=== PATIENT | male | born 1940 | race Hispanic/Latino ===

== ENCOUNTER 2018-05-13 09:37 | Outpatient (CLI) | payer MEDICARE | END 2018-05-13 09:38 | disposition home or self-care (01) | LOC: C.RADIC 09:37 | DX: M54.5 Low back pain (principal) ==

== ENCOUNTER 2018-05-16 09:46 | Inpatient (IN) | payer MEDICARE ==
[2018-05-16] MEDS ORDERED: Morphine 4 MG/ML VIAL ONE ×2 (10:34→11:58)
[2018-05-16 10:52] LABS: BASO % 0.6 % (0.0-2.0); EOS # 0.1 K/uL (0.0-0.7); EOS % 0.9 % (0.0-4.0); MEAN CORPUSCULAR HGB CONC 34.2 g/dL (33.0-37.0); MONO # 0.6 K/uL (0.0-0.8); MONO % 8.1 % (0.0-10.0); RBC 4.49 Mil/uL (4.40-5.90); RED CELL DISTRIBUTION WIDTH 13.9 % (11.5-14.5)
[2018-05-16 10:58] LABS: HEMOGLOBIN 14.1 g/dL (12.0-18.0); LYMPH # 1.2 K/uL (1.0-4.3); LYMPH % 16.4 % (20.0-40.0); MEAN CORPUSCULAR HEMOGLOBIN 31.5 pg (27.0-31.0); MEAN PLATELET VOLUME 9.7 fL (7.2-11.7); NEUT # 5.2 K/uL (1.8-7.0); NRBC % 0.7 % (0.0-2.0)
[2018-05-16 11:04] LABS: INR 1.4; PROTHROMBIN TIME 15.8 SECONDS (9.7-12.2)
[2018-05-16 11:08] LABS: BLOOD UREA NITROGEN 13 mg/dL (9-20); GFR NON-AFRICAN AMERICAN > 60
[2018-05-16 11:18] LABS: ALB/GLOB RATIO 1.6 (1.0-2.1); ALBUMIN 4.4 g/dL (3.5-5.0); ALT/SGPT 7 U/L (21-72); AST/SGOT 49 U/L (17-59)
--- NOTE | 2018-05-16 11:38 | C.PDOC ---
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 Patient states while out shoveling snow, he slipped and fell onto his left hip. He denies any head injury or LOC. Patient is now complaining of left hip pain. He denies any chest pain, SOB, abdominal pain, numbness, weakness, paresthesias, or open wounds. No other injury. Time Seen by Provider: 05/16/18 09:54 Chief Complaint (Nursing): Hip Pain History Per: Patient History/Exam Limitations: no limitations Onset/Duration Of Symptoms: Hrs Current Symptoms Are (Timing): Still Present - Hip Description Of Injury: Fell, Tripped Past Medical History Reviewed: Historical Data, Nursing Documentation, Vital Signs Vital Signs: Last Vital Signs Temp Pulse 54 L 05/16/18 10:39 Resp 10 L 05/16/18 10:39 BP 151/79 H 05/16/18 10:39 Pulse Ox 95 05/16/18 10:39 - Medical History PMH: Atrial Fibrillation, Kidney Stones Surgical History: Hernia Repair Other Surgeries: Prostate surgery Family History: States: No Known Family Hx - Social History Hx Alcohol Use: No Hx Substance Use: No - Immunization History Hx Tetanus Toxoid Vaccination: No Hx Influenza Vaccination: Yes Hx Pneumococcal Vaccination: Yes Review Of Systems Except As Marked, All Systems Reviewed And Found Negative. Constitutional: Negative for: Fever Eyes: Negative for: Vision Change Cardiovascular: Negative for: Chest Pain Respiratory: Negative for: Shortness of Breath Gastrointestinal: Negative for: Nausea, Vomiting, Abdominal Pain Musculoskeletal: Positive for: Leg Pain (Left hip). Negative for: Back Pain Neurological: Negative for: Weakness, Numbness, Headache, Dizziness Physical Exam - Physical Exam Appears: Non-toxic, No Acute Distress Skin: Warm, Dry, No Rash Head: Atraumatic, Normacephalic Eye(s): bilateral: Normal Inspection, PERRL, EOMI Neck: Normal ROM Chest: Symmetrical Cardiovascular: Rhythm Regular, No Murmur Respiratory: Normal Breath Sounds, No Accessory Muscle Use Gastrointestinal/Abdominal: Soft, No Tenderness, No Distention Extremity: Tenderness (to left hip and femur), No Deformity, No Swelling, Other (Left lower extremity shortened) Pulses: Left Dorsalis Pedis: Normal, Right Dorsalis Pedis: Normal Neurological/Psych: Oriented x3, Normal Speech, Normal Motor, Normal Sensation, Other (No focal deficits) ED Course And Treatment - Laboratory Results Result Diagrams: 05/16/18 10:49 05/16/18 10:49 Lab Results: PT 15.8 SECONDS (9.7-12.2) H 05/16/18 10:49 INR 1.4 05/16/18 10:49 APTT 29 SECONDS (21-34) 05/16/18 10:49 Troponin I 0.0130 ng/mL (0.00-0.120) 05/16/18 10:49 Total Bilirubin 1.5 mg/dL (0.2-1.3) H 05/16/18 10:49 AST 49 U/L (17-59) 05/16/18 10:49 ALT 7 U/L (21-72) L 05/16/18 10:49 Alkaline Phosphatase 72 U/L (38-126) 05/16/18 10:49 Total Protein 7.1 g/dL (6.3-8.3) 05/16/18 10:49 Albumin 4.4 g/dL (3.5-5.0) 05/16/18 10:49 Globulin 2.7 gm/dL (2.2-3.9) 05/16/18 10:49 Albumin/Globulin Ratio 1.6 (1.0-2.1) 05/16/18 10:49 O2 Sat by Pulse Oximetry: 95 (RA) Pulse Ox Interpretation: Normal Medical Decision Making Medical Decision Making: Impression: Hip Pain Initial Plan: - Blood work - EKG - Chest x-ray - Left hip x-ray - Left femur x-ray - 4 mg IV morphine - 4 mg IV zofran - Reassess Imaging reviewed, +hip fracture. Case discussed with Dr. Thompson, will not accept patient. Disposition Discussed With : Danica Garcia Doctor Will See Patient In The: Hospital Counseled Patient/Family Regarding: Studies Performed, Diagnosis - Disposition Disposition: HOSPITALIZED Disposition Time: 12:18 Condition: FAIR - Clinical Impression Clinical Impression: Hip fracture - Scribe Statement The provider has reviewed the documentation as recorded by the Steffanie Urbina Provider Attestation: All medical record entries made by the Gildardoibjerome were at my direction and personally dictated by me. I have reviewed the chart and agree that the record accurately reflects my personal performance of the history, physical exam, m edical decision making, and the department course for this patient. I have also personally directed, reviewed, and agree with the discharge instructions and disposition.
--- NOTE | 2018-05-16 12:59 | RAD ---
Date of service: 05/16/2018 PROCEDURE: CHEST RADIOGRAPH, 1 VIEW HISTORY: SOB COMPARISON: 05/01/2017. FINDINGS: LUNGS: The lungs are well inflated and clear. PLEURA: No pneumothorax or pleural effusion. CARDIOVASCULAR: There is mild cardiomegaly. No aortic atherosclerotic calcifications present. OSSEOUS STRUCTURES: Within normal limits for the patient's age. VISUALIZED UPPER ABDOMEN: Normal. OTHER FINDINGS: None. IMPRESSION: No active pulmonary disease.
--- NOTE | 2018-05-16 13:16 | RAD ---
PROCEDURE: Left Hip X-ray Radiographs. HISTORY: Fall COMPARISON: None. FINDINGS: BONES: The pelvic ring is intact. There is diffuse bone demineralization. There is an acute comminuted mildly displaced left intertrochanteric fracture. 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 The sacroiliac joints are normal. SOFT TISSUES: There is a lobular calcification in the right paraspinous region at L5 which may represent a calcified lymph node or soft tissue calcification. OTHER FINDINGS: None. IMPRESSION: Acute comminuted mildly displaced left intertrochanteric fracture. No dislocation.
--- NOTE | 2018-05-16 13:18 | RAD ---
Date of service: 05/16/2018 PROCEDURE: Left Femur Radiographs. HISTORY: Fall COMPARISON: None. TECHNIQUE: AP and Lateral Radiographs of the left femur. FINDINGS: FEMUR: There is an acute comminuted mildly displaced left intertrochanteric fracture. There is diffuse bone demineralization. Bone alignment is normal. Mild degenerative osteoarthrosis in the left hip joint SOFT TISSUES: Normal. OTHER FINDINGS: None. IMPRESSION: Acute comminuted mildly displaced left intertrochanteric fracture. No dislocation of the
[2018-05-16] MEDS ORDERED: Enoxaparin 80 mg Syringe SC SCH (17:15)
--- NOTE | 2018-05-16 18:41 | CP.PCM.CON ---
History of Present Illness - History of Present Illness History of Present Illness: 78 yo M w Hx Afib, HTN, hypercholesterolemia admitted sp slip and fall on ice diagnosed w L hip fx. Consulted for pain medication. Pt has pain over L hip area. Pt states pain 10/10 before receiving Morphine 3mg IV approx 3 hrs ago. Pain currently 6/10, worse with movement. 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 Past Patient History - Infectious Disease Hx of Infectious Diseases: None - Past Medical History & Family History Past Medical History?: Yes - Past Social History Smoking Status: Never Smoked - CARDIAC Hx Cardiac Disorders: Yes Hx Atrial Fibrillation: Yes - PULMONARY Hx Respiratory Disorders: No - NEUROLOGICAL Hx Neurological Disorder: No - HEENT Hx HEENT Problems: No - RENAL Hx Chronic Kidney Disease: Yes Hx Kidney Stones: Yes - ENDOCRINE/METABOLIC Hx Endocrine Disorders: No - HEMATOLOGICAL/ONCOLOGICAL Hx Blood Disorders: No - INTEGUMENTARY Hx Dermatological Problems: No - MUSCULOSKELETAL/RHEUMATOLOGICAL Hx Musculoskeletal Disorders: No Hx Falls: No - GASTROINTESTINAL Hx Gastrointestinal Disorders: No - GENITOURINARY/GYNECOLOGICAL Hx Genitourinary Disorders: No - PSYCHIATRIC Hx Psychophysiologic Disorder: No Hx Substance Use: No - SURGICAL HISTORY Hx Surgeries: Yes Other/Comment: Bilateral inguinal hernia surgery. Surgery for kidney stones. Surgery for enlarged prostate - ANESTHESIA Hx Anesthesia: Yes Hx Anesthesia Reactions: No Meds Allergies/Adverse Reactions: Allergies Allergy/AdvReac Type Severity Reaction Status Date / Time iodine Allergy Mild DIZZINESS Verified 05/16/18 10:27 - Medications Medications: Current Medications Enalapril Maleate (Vasotec) 10 mg PO BID [facility] Enoxaparin Sodium (Lovenox) 80 mg SC Q12 [facility] Hydromorphone/Sodium Chloride (Dilaudid Energy Risk Management Analyst) 6 mg IV Q4H PRN; Protocol PRN Reason: Pain, moderate (4-7) Morphine Sulfate (Morphine) 4 mg IVP Q6 [facility] Last Admin: 05/16/18 15:30 Dose: 4 mg Pneumococcal Polyvalent Vaccine (Pneumovax 23 Vaccine) 0.5 ml IM .ONCE ONE Stop: 05/18/18 14:01 Rosuvastatin Calcium (Crestor) 10 mg PO [facility] Results - Vital Signs Recent Vital Signs: Last Vital Signs Temp 98.4 F 05/16/18 16:00 Pulse 66 05/16/18 16:00 Resp 20 05/16/18 16:00 BP 107/67 05/16/18 16:00 Pulse Ox 96 05/16/18 16:00 - Labs Result Diagrams: 05/16/18 10:49 05/16/18 10:49 Labs: Laboratory Results - last 24 hr 05/16/18 05/16/18 05/16/18 10:49 10:49 10:49 WBC 7.0 RBC 4.49 Hgb 14.1 Hct 41.3 MCV 92.0 MCH 31.5 H MCHC 34.2 RDW 13.9 Plt Count 128 L MPV 9.7 Neut % (Auto) 74.0 Lymph % (Auto) 16.4 L Chester % (Auto) 8.1 Eos % (Auto) 0.9 Baso % (Auto) 0.6 Neut # (Auto) 5.2 Lymph # (Auto) 1.2 Chester # (Auto) 0.6 Eos # (Auto) 0.1 Baso # (Auto) 0.0 PT 15.8 H INR 1.4 APTT 29 Sodium 139 Potassium 4.4 Chloride 106 Carbon Dioxide 23 Anion Gap 15 BUN 13 Creatinine 0.7 L Est GFR ( Amer) > 60 Est GFR (Non-Af Amer) > 60 Random Glucose 126 H Calcium 9.0 Total Bilirubin 1.5 H AST 49 ALT 7 L Alkaline Phosphatase 72 Total Creatine Kinase 86 Troponin I 0.0130 Total Protein 7.1 Albumin 4.4 Globulin 2.7 Albumin/Globulin Ratio 1.6
--- NOTE | 2018-05-16 19:52 | CP.PCM.HP ---
Past Patient History - Infectious Disease Hx of Infectious Diseases: None - Past Medical History & Family History Past Medical History?: Yes - Past Social History Smoking Status: Never Smoked - CARDIAC Hx Cardiac Disorders: Yes Hx Atrial Fibrillation: Yes - PULMONARY Hx Respiratory Disorders: No - NEUROLOGICAL Hx Neurological Disorder: No - HEENT Hx HEENT Problems: No - RENAL Hx Chronic Kidney Disease: Yes Hx Kidney Stones: Yes - ENDOCRINE/METABOLIC Hx Endocrine Disorders: No - HEMATOLOGICAL/ONCOLOGICAL Hx Blood Disorders: No - INTEGUMENTARY Hx Dermatological Problems: No - MUSCULOSKELETAL/RHEUMATOLOGICAL Hx Musculoskeletal Disorders: No Hx Falls: No - GASTROINTESTINAL Hx Gastrointestinal Disorders: No - GENITOURINARY/GYNECOLOGICAL Hx Genitourinary Disorders: No - PSYCHIATRIC Hx Psychophysiologic Disorder: No Hx Substance Use: No - SURGICAL HISTORY Hx Surgeries: Yes Other/Comment: Bilateral inguinal hernia surgery. Surgery for kidney stones. Surgery for enlarged prostate - ANESTHESIA Hx Anesthesia: Yes Hx Anesthesia Reactions: No Meds Allergies/Adverse Reactions: Allergies Allergy/AdvReac Type Severity Reaction Status Date / Time iodine Allergy Mild DIZZINESS Verified 05/16/18 10:27 Physical Exam - Constitutional Appears: Well - Head Exam Head Exam: ATRAUMATIC, NORMAL INSPECTION, NORMOCEPHALIC - Eye Exam Eye Exam: EOMI, Normal appearance, PERRL Pupil Exam: NORMAL ACCOMODATION, PERRL - ENT Exam ENT Exam: Mucous Membranes Moist, Normal Exam - Neck Exam Neck exam: Positive for: Normal Inspection - Respiratory Exam Respiratory Exam: Decreased Breath Sounds - Cardiovascular Exam Cardiovascular Exam: REGULAR RHYTHM, +S1, +S2 - GI/Abdominal Exam GI & Abdominal Exam: Diminished Bowel Sounds, Soft - Rectal Exam Rectal Exam: Deferred Results - Vital Signs Recent Vital Signs: Last Vital Signs Temp 98.4 F 05/16/18 16:00 Pulse 66 05/16/18 16:00 Resp 20 05/16/18 16:00 BP 107/67 05/16/18 16:00 Pulse Ox 96 05/16/18 16:00 - Labs Result Diagrams: 05/16/18 10:49 05/16/18 10:49 Labs: Laboratory Results - last 24 hr 05/16/18 05/16/18 05/16/18 10:49 10:49 10:49 WBC 7.0 RBC 4.49 Hgb 14.1 Hct 41.3 MCV 92.0 MCH 31.5 H MCHC 34.2 RDW 13.9 Plt Count 128 L MPV 9.7 Neut % (Auto) 74.0 Lymph % (Auto) 16.4 L Mcdonald % (Auto) 8.1 Eos % (Auto) 0.9 Baso % (Auto) 0.6 Neut # (Auto) 5.2 Lymph # (Auto) 1.2 Mcdonald # (Auto) 0.6 Eos # (Auto) 0.1 Baso # (Auto) 0.0 PT 15.8 H INR 1.4 APTT 29 Sodium 139 Potassium 4.4 Chloride 106 Carbon Dioxide 23 Anion Gap 15 BUN 13 Creatinine 0.7 L Est GFR ( Amer) > 60 Est GFR (Non-Af Amer) > 60 Random Glucose 126 H Calcium 9.0 Total Bilirubin 1.5 H AST 49 ALT 7 L Alkaline Phosphatase 72 Total Creatine Kinase 86 Troponin I 0.0130 Total Protein 7.1 Albumin 4.4 Globulin 2.7 Albumin/Globulin Ratio 1.6
[2018-05-16] MEDS: Enoxaparin 80 mg Syringe SC SCH (21:29)
--- NOTE | 2018-05-17 09:09 | CP.PCM.CON ---
History of Present Illness - History of Present Illness History of Present Illness: ID: 78 yo male sustained a slip and fall on ice yesterday while shoveling snow HPI - 78 yo male with hx of a fibrillation presents after slip and fall on ice while shoveling snow PT presented to [facility] ER approx 9:[address] Powell was called earlier in day and no response. Iwas notified at 5:13 and responded. Spoke to daughter; pt admitted and evaluated ;will require ORIF displaced L intertrochanteric L femur fracture Review of Systems - Hematologic/Lymphatic Additional comments: ROS - pt with pain L hip; no dyspnea Past Patient History - Infectious Disease Hx of Infectious Diseases: None - Past Medical History & Family History Past Medical History?: Yes - Past Social History Smoking Status: Never Smoked - CARDIAC Hx Cardiac Disorders: Yes Hx Atrial Fibrillation: Yes - PULMONARY Hx Respiratory Disorders: No - NEUROLOGICAL Hx Neurological Disorder: No - HEENT Hx HEENT Problems: No - RENAL Hx Chronic Kidney Disease: Yes Hx Kidney Stones: Yes - ENDOCRINE/METABOLIC Hx Endocrine Disorders: No - HEMATOLOGICAL/ONCOLOGICAL Hx Blood Disorders: No - INTEGUMENTARY Hx Dermatological Problems: No - MUSCULOSKELETAL/RHEUMATOLOGICAL Hx Musculoskeletal Disorders: No Hx Falls: No - GASTROINTESTINAL Hx Gastrointestinal Disorders: No - GENITOURINARY/GYNECOLOGICAL Hx Genitourinary Disorders: No - PSYCHIATRIC Hx Psychophysiologic Disorder: No Hx Substance Use: No - SURGICAL HISTORY Hx Surgeries: Yes Other/Comment: Bilateral inguinal hernia surgery. Surgery for kidney stones. Surgery for enlarged prostate - ANESTHESIA Hx Anesthesia: Yes Hx Anesthesia Reactions: No Meds Allergies/Adverse Reactions: Allergies Allergy/AdvReac Type Severity Reaction Status Date / Time iodine Allergy Mild DIZZINESS Verified 05/16/18 10:27 - Medications Medications: Current Medications Enalapril Maleate (Vasotec) 10 mg PO BID [facility] Last Admin: 05/16/18 21:26 Dose: 10 mg Enoxaparin Sodium (Lovenox) 80 mg SC Q12 [facility] Last Admin: 05/16/18 21:29 Dose: 80 mg Hydromorphone/Sodium Chloride (Dilaudid Fish Skinning Machine Feeder) 6 mg IV Q4H PRN; Protocol PRN Reason: Pain, moderate (4-7) Pneumococcal Polyvalent Vaccine (Pneumovax 23 Vaccine) 0.5 ml IM .ONCE ONE Stop: 05/18/18 14:01 Rosuvastatin Calcium (Crestor) 10 mg PO HS [facility] Last Admin: 05/16/18 21:31 Dose: 10 mg Physical Exam - Additional Findings Additional findings: Systremic exam- asa per internal medicine and cardiology Musculoskeletal stance/gait- defrred pt with shortening and external rotation L lower extremity N/V intact pt with severe pain referable to L LOwer extremity Results - Vital Signs Recent Vital Signs: Last Vital Signs Temp 98.6 F 05/17/18 07:05 Pulse 68 05/17/18 07:05 Resp 20 05/17/18 07:05 BP 113/71 05/17/18 07:05 Pulse Ox 94 L 05/17/18 07:05 - Labs Result Diagrams: 05/16/18 10:49 05/16/18 10:49 Labs: Laboratory Results - last 24 hr 05/16/18 05/16/18 05/16/18 10:49 10:49 10:49 WBC 7.0 RBC 4.49 Hgb 14.1 Hct 41.3 MCV 92.0 MCH 31.5 H MCHC 34.2 RDW 13.9 Plt Count 128 L MPV 9.7 Neut % (Auto) 74.0 Lymph % (Auto) 16.4 L Burke % (Auto) 8.1 Eos % (Auto) 0.9 Baso % (Auto) 0.6 Neut # (Auto) 5.2 Lymph # (Auto) 1.2 Burke # (Auto) 0.6 Eos # (Auto) 0.1 Baso # (Auto) 0.0 PT 15.8 H INR 1.4 APTT 29 Sodium 139 Potassium 4.4 Chloride 106 Carbon Dioxide 23 Anion Gap 15 BUN 13 Creatinine 0.7 L Est GFR ( Amer) > 60 Est GFR (Non-Af Amer) > 60 Random Glucose 126 H Calcium 9.0 Total Bilirubin 1.5 H AST 49 ALT 7 L Alkaline Phosphatase 72 Total Creatine Kinase 86 Troponin I 0.0130 Total Protein 7.1 Albumin 4.4 Globulin 2.7 Albumin/Globulin Ratio 1.6 - Impressions Impression: Objective Xrays reveal displaced/ somewhat comminuted Left intertrochanteric femur fracture Assessment & Plan - Assessment and Plan (Free Text) Assessment: A-displaced/ comminuted L intertrochanteric femur frcature P-to mOR for interlocking/ intramedullary nail L femur- situation discussed at length-with pts daughter Marsha. Pros , cons risks and beneifts discussed at [facility] with pts daughter and with pt No promises/guarantees
[2018-05-17] MEDS: Enoxaparin 80 mg Syringe SC SCH ×2 (10:09→21:11)
--- NOTE | 2018-05-17 12:36 | CP.PCM.PN ---
Subjective - Date & Time of Evaluation Date of Evaluation: 05/17/18 Time of Evaluation: 12:15 - Subjective Subjective: clinically same Objective - Vital Signs/Intake and Output Vital Signs (last 24 hours): Temp Pulse Resp BP Pulse Ox 98.6 F 68 20 113/71 94 L 05/17/18 07:05 05/17/18 07:05 05/17/18 07:05 05/17/18 10:09 05/17/18 07:05 - Medications Medications: Current Medications Enalapril Maleate (Vasotec) 10 mg PO BID [facility] Last Admin: 05/17/18 10:09 Dose: 10 mg Enoxaparin Sodium (Lovenox) 80 mg SC Q12 [facility] Last Admin: 05/17/18 10:09 Dose: 80 mg Hydromorphone/Sodium Chloride (Dilaudid Medical Record Retrieval Specialist) 6 mg IV Q4H PRN; Protocol PRN Reason: Pain, moderate (4-7) Pneumococcal Polyvalent Vaccine (Pneumovax 23 Vaccine) 0.5 ml IM .ONCE ONE Stop: 05/18/18 14:01 Rosuvastatin Calcium (Crestor) 10 mg PO HS [facility] Last Admin: 05/16/18 21:31 Dose: 10 mg - Labs Labs: 05/16/18 10:49 05/16/18 10:49 PT 15.8 SECONDS (9.7-12.2) H 05/16/18 10:49 INR 1.4 05/16/18 10:49 APTT 29 SECONDS (21-34) 05/16/18 10:49 - Constitutional Appears: Well - Head Exam Head Exam: ATRAUMATIC, NORMAL INSPECTION, NORMOCEPHALIC - Eye Exam Eye Exam: EOMI, Normal appearance, PERRL Pupil Exam: NORMAL ACCOMODATION, PERRL - ENT Exam ENT Exam: Mucous Membranes Moist, Normal Exam - Neck Exam Neck Exam: Full ROM, Normal Inspection. absent: Lymphadenopathy - Respiratory Exam Respiratory Exam: Decreased Breath Sounds - Cardiovascular Exam Cardiovascular Exam: REGULAR RHYTHM, +S1, +S2 - GI/Abdominal Exam GI & Abdominal Exam: Soft, Diminished Bowel Sounds - Rectal Exam Rectal Exam: Deferred
--- NOTE | 2018-05-17 14:02 | CARD ---
APPROVED REPORT Date of service: 05/17/2018 EXAM: Two-dimensional and M-mode echocardiogram with Doppler and color Doppler. Other Information Quality : GoodRhythm : INDICATION Pre-Op 2D DIMENSIONS IVSd1.2 (0.7-1.1cm)LVDd5.2 (3.9-5.9cm) LVOT Diameter1.8 (1.8-2.4cm)PWd1.1 (0.7-1.1cm) LVDs3.4 (2.5-4.0cm)FS (%) 34.5 % LVEF (%)63.2 (>50%)LVEF (Rankin's)59.14 % M-Mode DIMENSIONS Left Atrium (MM)3.42 (2.5-4.0cm)Aortic Root3.92 (2.2-3.7cm) Aortic Cusp Exc.1.07 (1.5-2.0cm) Mitral Valve MV E Nvumnumo05.9cm/sMV A Spqzqtfy61.6cm/sE/A ratio0.6 TDI Lateral E' Peak V8.81cm/sMedial E' Peak V4.29cm/sE/Lateral E'5.2 E/Medial E'10.7 Pulmonary Valve PV Peak Biyowxck93.0cm/sPV Peak Grad.2mmHg Tricuspid Valve TR Peak Hsufsyrs252cd/sTR Peak Gr.[id number] LEFT VENTRICLE The left ventricle is normal size. There is normal left ventricular wall thickness. The Ejection Fraction is 60-65%. There is normal LV segmental wall motion. Transmitral Doppler flow pattern is Grade I-abnormal relaxation pattern. RIGHT VENTRICLE The right ventricle is normal size. The right ventricular systolic function is normal. ATRIA The left atrium size is normal. The right atrium size is normal. The interatrial septum is intact with no evidence for an atrial septal defect. AORTIC VALVE The aortic valve is mildly calcified. There is mild aortic regurgitation. MITRAL VALVE The mitral valve is normal in structure. There is no mitral valve regurgitation noted. TRICUSPID VALVE The tricuspid valve is normal in structure. There is mild tricuspid regurgitation. Right ventricular systolic pressure is estimated at 35 mmHg. There is mild pulmonary hypertension. PULMONIC VALVE The pulmonary valve is normal in structure. GREAT VESSELS The aortic root is normal size. The aortic root displays mild sclerocalcific changes of the aortic root. The IVC is normal in size and collapses >50% with inspiration. PERICARDIAL EFFUSION There is no pericardial effusion. <Conclusion> The left ventricle is normal size. The Ejection Fraction is 60-65%. Transmitral Doppler flow pattern is Grade I-abnormal relaxation pattern. There is mild aortic regurgitation. There is mild tricuspid regurgitation. Right ventricular systolic pressure is estimated at 35 mmHg. There is mild pulmonary hypertension. The aortic root is normal size. The aortic root displays mild sclerocalcific changes of the aortic root. The IVC is normal in size and collapses >50% with inspiration. There is no pericardial effusion.
[2018-05-18] MEDS: Enoxaparin 80 mg Syringe SC SCH ×2 (09:41→21:51)
--- NOTE | 2018-05-18 12:11 | CP.PCM.CON ---
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 Patient states while out shoveling snow, he slipped and fell onto his left hip. He denies any head injury or LOC. We are asked to provide preoperative CV risk assessment: Cardiac HX: Parox. AFIB chronically on eliquis without hx of bleeding HTN chronic stable LIPIDS on statin No smoking No Prior CVA or OK Ordinarily active to a level of >4mets without any cardiac sx's. Currently: No CP, SOB, fevers, chills or palpitation Review of Systems - Review of Systems All systems: reviewed and no additional remarkable complaints except Past Patient History - Infectious Disease Hx of Infectious Diseases: None - Past Medical History & Family History Past Medical History?: Yes - Past Social History Smoking Status: Never Smoked - CARDIAC Hx Cardiac Disorders: Yes Hx Atrial Fibrillation: Yes - PULMONARY Hx Respiratory Disorders: No - NEUROLOGICAL Hx Neurological Disorder: No - HEENT Hx HEENT Problems: No - RENAL Hx Chronic Kidney Disease: Yes Hx Kidney Stones: Yes - ENDOCRINE/METABOLIC Hx Endocrine Disorders: No - HEMATOLOGICAL/ONCOLOGICAL Hx Blood Disorders: No - INTEGUMENTARY Hx Dermatological Problems: No - MUSCULOSKELETAL/RHEUMATOLOGICAL Hx Musculoskeletal Disorders: No Hx Falls: No - GASTROINTESTINAL Hx Gastrointestinal Disorders: No - GENITOURINARY/GYNECOLOGICAL Hx Genitourinary Disorders: No - PSYCHIATRIC Hx Psychophysiologic Disorder: No Hx Substance Use: No - SURGICAL HISTORY Hx Surgeries: Yes Other/Comment: Bilateral inguinal hernia surgery. Surgery for kidney stones. Surgery for enlarged prostate - ANESTHESIA Hx Anesthesia: Yes Hx Anesthesia Reactions: No Meds Allergies/Adverse Reactions: Allergies Allergy/AdvReac Type Severity Reaction Status Date / Time iodine Allergy Mild DIZZINESS Verified 05/16/18 10:27 - Medications Medications: Current Medications Enalapril Maleate (Vasotec) 10 mg PO BID [facility] Last Admin: 05/18/18 09:42 Dose: 10 mg Enoxaparin Sodium (Lovenox) 80 mg SC Q12 [facility] Last Admin: 05/18/18 09:41 Dose: Not Given Hydromorphone/Sodium Chloride (Dilaudid Domestic Maid) 6 mg IV Q4H PRN; Protocol PRN Reason: Pain, moderate (4-7) Last Admin: 05/17/18 12:05 Dose: 6 mg Pneumococcal Polyvalent Vaccine (Pneumovax 23 Vaccine) 0.5 ml IM .ONCE ONE Stop: 05/18/18 14:01 Rosuvastatin Calcium (Crestor) 10 mg PO HS [facility] Last Admin: 05/17/18 21:11 Dose: 10 mg Physical Exam - Constitutional Appears: No Acute Distress - Head Exam Head Exam: ATRAUMATIC, NORMAL INSPECTION, NORMOCEPHALIC - Eye Exam Eye Exam: EOMI, Normal appearance. absent: Scleral icterus - ENT Exam ENT Exam: Mucous Membranes Moist, Normal Oropharynx - Neck Exam Neck exam: Positive for: Full Rom, Normal Inspection. Negative for: Tenderness - Respiratory Exam Respiratory Exam: Clear to Auscultation Bilateral, NORMAL BREATHING PATTERN. absent: Rhonchi, Wheezes - Cardiovascular Exam Cardiovascular Exam: REGULAR RHYTHM, +S1, +S2. absent: Gallop, JVD, Systolic Murmur - GI/Abdominal Exam GI & Abdominal Exam: Normal Bowel Sounds, Soft. absent: Tenderness - Extremities Exam Extremities exam: Negative for: calf tenderness, normal inspection (L. hip rotated, pain controlled), pedal edema - Neurological Exam Neurological exam: Alert, Oriented x3 - Psychiatric Exam Psychiatric exam: Normal Affect, Normal Mood - Skin Skin Exam: Normal Color, Warm Results - Vital Signs Recent Vital Signs: Last Vital Signs Temp 98.0 F 05/18/18 07:10 Pulse 69 05/18/18 07:10 Resp 20 05/18/18 07:10 BP 115/69 05/18/18 09:42 Pulse Ox 95 05/18/18 07:10 - Labs Result Diagrams: 05/16/18 10:49 05/16/18 10:49 - EKG Data EKG Interpreted by: Myself Assessment & Plan - Assessment and Plan (Free Text) Assessment: 78 y/o man with controlled HTN and controlled lipids Hx of AFIB: NSR on multiple EKGs in hospital: chronically on Eliquis without any bleeding complication Preop for L. Hip intertrochanteric fracture Eliquis has been held since Saturday EKG: NSR, left axis, no acute ischemic changes ECHO: done: images rev by me directly: Normal LVEF, Grade 1 DD with normal LA pressure, normal wall motion, no sig valvular disease. Mild inc in PASP 33mmhg. CXR: No congestion Labs: Normal creat Vitals: Normal BP Exam: No volume overload, normal pulses and no bruits. Based on the above: patient is acceptable risk to proceed with ortho procedure: Monitor for AFIb and consider metoprolol for rate control should it develop. Resume anticoagulation soonest when safe. Early ambulation with PT if possible.
[2018-05-18] MEDS ORDERED: Pneumococcal 23-Valent Vaccine IM ONE (14:00)
--- NOTE | 2018-05-18 15:23 | CP.PCM.PN ---
Subjective - Date & Time of Evaluation Date of Evaluation: 05/18/18 Time of Evaluation: 11:00 - Subjective Subjective: clinically same Objective - Vital Signs/Intake and Output Vital Signs (last 24 hours): Temp Pulse Resp BP Pulse Ox 98.0 F 82 20 115/72 95 05/18/18 07:10 05/18/18 13:27 05/18/18 07:10 05/18/18 13:27 05/18/18 07:10 Intake and Output: 05/18/18 05/18/18 06:59 18:59 Intake Total 9 Balance 9 - Medications Medications: Current Medications Enalapril Maleate (Vasotec) 10 mg PO BID [facility] Last Admin: 05/18/18 09:42 Dose: 10 mg Enoxaparin Sodium (Lovenox) 80 mg SC Q12 [facility] Last Admin: 05/18/18 09:41 Dose: Not Given Hydromorphone/Sodium Chloride (Dilaudid Screw Machine Setter) 6 mg IV Q4H PRN; Protocol PRN Reason: Pain, moderate (4-7) Last Admin: 05/18/18 14:02 Dose: 6 mg Rosuvastatin Calcium (Crestor) 10 mg PO HS [facility] Last Admin: 05/17/18 21:11 Dose: 10 mg - Labs Labs: 05/16/18 10:49 05/16/18 10:49 PT 15.8 SECONDS (9.7-12.2) H 05/16/18 10:49 INR 1.4 05/16/18 10:49 APTT 29 SECONDS (21-34) 05/16/18 10:49 - Constitutional Appears: Well - Head Exam Head Exam: ATRAUMATIC, NORMAL INSPECTION, NORMOCEPHALIC - Eye Exam Eye Exam: EOMI, Normal appearance, PERRL Pupil Exam: NORMAL ACCOMODATION, PERRL - ENT Exam ENT Exam: Mucous Membranes Moist, Normal Exam - Neck Exam Neck Exam: Full ROM, Normal Inspection. absent: Lymphadenopathy - Respiratory Exam Respiratory Exam: Decreased Breath Sounds - Cardiovascular Exam Cardiovascular Exam: REGULAR RHYTHM, +S1, +S2 - GI/Abdominal Exam GI & Abdominal Exam: Soft, Diminished Bowel Sounds - Rectal Exam Rectal Exam: Deferred
[2018-05-19] MEDS: Enoxaparin 80 mg Syringe SC SCH (10:08)
--- NOTE | 2018-05-19 10:51 | CP.PCM.PN ---
Subjective - Date & Time of Evaluation Date of Evaluation: 05/19/18 Time of Evaluation: 10:48 - Subjective Subjective: 78 year old male with a past medical history of hypertension, paroxysmal atrial fibrillation and hypercholesterolemia presents to the hospital status post mechanical fall while at home. Patient states he was shoveling the snow when he slipped and fell down. Patient denies hitting his head during the incident. Patient reports having a fall like this in the past. Patient denies any inciting symptoms prior to falling. Patient denies any chest pain, shortness of breath, fevers, chills, nausea, vomiting, abdominal pain, syncopal episodes, or any other complaints. PMD:Dr. Grajeda Medical history: hypertension, hypercholesterolemia, paroxysmal afib Allergies: Iodine Surgical history: Bilateral inguinal hernia repairs Family history: Dad of stomach cancer. Social history: denies alcohol or tobacco use. Denies illicit drug use. Objective - Vital Signs/Intake and Output Vital Signs (last 24 hours): Temp Pulse Resp BP Pulse Ox 98.3 F 70 20 145/88 96 05/19/18 07:00 05/19/18 07:00 05/19/18 07:00 05/19/18 10:08 05/19/18 07:00 Intake and Output: 05/19/18 05/19/18 06:59 18:59 Intake Total 13 Output Total 400 Balance -387 - Medications Medications: Current Medications Enalapril Maleate (Vasotec) 10 mg PO BID [facility] Last Admin: 05/19/18 10:08 Dose: 10 mg Enoxaparin Sodium (Lovenox) 80 mg SC Q12 [facility] Last Admin: 05/19/18 10:08 Dose: 80 mg Hydromorphone/Sodium Chloride (Dilaudid Donor Services Coordinator) 6 mg IV Q4H PRN; Protocol PRN Reason: Pain, moderate (4-7) Last Admin: 05/18/18 14:02 Dose: 6 mg Rosuvastatin Calcium (Crestor) 10 mg PO HS [facility] Last Admin: 05/18/18 21:50 Dose: 10 mg - Labs Labs: 05/16/18 10:49 05/16/18 10:49 PT 15.8 SECONDS (9.7-12.2) H 05/16/18 10:49 INR 1.4 05/16/18 10:49 APTT 29 SECONDS (21-34) 05/16/18 10:49 - Head Exam Head Exam: ATRAUMATIC, NORMAL INSPECTION - Eye Exam Eye Exam: EOMI, PERRL - ENT Exam ENT Exam: Mucous Membranes Moist, Normal Oropharynx - Respiratory Exam Respiratory Exam: Clear to Ausculation Bilateral, NORMAL BREATHING PATTERN. absent: Prolonged Expiratory Phase, Respiratory Distress - Cardiovascular Exam Cardiovascular Exam: REGULAR RHYTHM, +S1, +S2 - GI/Abdominal Exam GI & Abdominal Exam: Soft, Normal Bowel Sounds. absent: Hyperactive Bowel Sounds - Extremities Exam Extremities Exam: absent: Pedal Edema - Back Exam Back Exam: NORMAL INSPECTION. absent: CVA tenderness (R), paraspinal tenderness - Neurological Exam Neurological Exam: Alert, Awake, CN II-XII Intact, Oriented x3 - Psychiatric Exam Psychiatric exam: Normal Affect, Normal Mood - Skin Skin Exam: Dry, Intact Assessment and Plan - Assessment and Plan (Free Text) Assessment: 78 year old male with a past medical history of hypertension and hypercholesterolemia s/p mechanical fall presents with hip fracture. Plan: 1. Left intertrochanteric fracture Femur xray:Acute comminuted mildly displaced left intertrochanteric fracture. No dislocation of the Left hip xray:Acute comminuted mildly displaced left intertrochanteric fracture. No dislocation. l/s spine xray:No fracture, lytic lesion or subluxation seen. Thoracic and lumbar level spondylosis. Other findings as above. Orthopedics Dr. Vásquez consulted. Help appreciated. Cardiology Dr. Coughlin consulted. Help appreciated. Patient to have surgery for repair. Prior to surgery patient must be off of anticoagulation for 5 days prior. 2.hx of hypertension -Continue Vasotec 10mg PO BID [facility] 3.hx of hypercholesteorlemia -Continue Crestor 10mg PO HS [facility] 4.hx of Paroxysmal atrial fibrillation -On Eliqus at home without history of bleed. -Eliquis held since Saturday. Expected to undergo surgery for hip fracture later this week. -Lovenox 80mg SC Q12 held. PPX GI ppx not indicated at this time. SCD's Dispo: Patient to have hip repair after being off of anticoagulation for 5 days total. All management per Dr. Mimi Garcia. Garcia Davies, PGYP-2
[2018-05-19 11:33] LABS: MEAN CELL VOLUME 92.5 fL (80.0-94.0); MEAN CORPUSCULAR HEMOGLOBIN 31.3 pg (27.0-31.0); MEAN CORPUSCULAR HGB CONC 33.9 g/dL (33.0-37.0); MEAN PLATELET VOLUME 9.5 fL (7.2-11.7); RBC 3.7 Mil/uL (4.40-5.90); WHITE BLOOD COUNT 5.7 K/uL (4.8-10.8)
[2018-05-19 11:37] LABS: INR 1.4; PROTHROMBIN TIME 15.4 SECONDS (9.7-12.2)
[2018-05-19 11:44] LABS: BLOOD UREA NITROGEN 14 mg/dL (9-20); CALCIUM 8.5 mg/dl (8.6-10.4); GFR NON-AFRICAN AMERICAN > 60
[2018-05-19 11:47] LABS: HEMOGLOBIN 11.6 g/dL (12.0-18.0)
--- NOTE | 2018-05-19 12:46 | CARD ---
APPROVED REPORT Date of service: 05/16/2018 EKG Measurement Heart [id number] AR [id number] [id number] <Conclusion> Normal sinus rhythm Left anterior fascicular block Abnormal ECG
[2018-05-19] MEDS ORDERED: Bisacodyl 5mg EC Tab PO ONE (12:59)
--- NOTE | 2018-05-19 13:04 | CP.PCM.PN ---
Subjective - Date & Time of Evaluation Date of Evaluation: 05/19/18 Time of Evaluation: 13:00 - Subjective Subjective: Patient with family at bedside. Pain is still not controlled on SUPERVISOR CASE LOADING. Denies CP/SOB/dizziness. Denies numbnss/tingling. Has not had BM since admission, c/o constipation. Objective - Vital Signs/Intake and Output Vital Signs (last 24 hours): Temp Pulse Resp BP Pulse Ox 98.3 F 70 20 145/88 96 05/19/18 07:00 05/19/18 07:00 05/19/18 07:00 05/19/18 10:08 05/19/18 07:00 Intake and Output: 05/19/18 05/19/18 06:59 18:59 Intake Total 13 Output Total 400 Balance -387 - Medications Medications: Current Medications Acetaminophen (Tylenol 325mg Tab) 650 mg PO Q6 [facility] Bisacodyl (Dulcolax) 10 mg PO ONCE ONE Stop: 05/19/18 13:00 Docusate Sodium (Colace) 100 mg PO TID [facility] Enalapril Maleate (Vasotec) 10 mg PO BID [facility] Last Admin: 05/19/18 10:08 Dose: 10 mg Enoxaparin Sodium (Lovenox) 80 mg SC Q12 [facility] Last Admin: 05/19/18 10:08 Dose: 80 mg Hydromorphone/Sodium Chloride (Dilaudid Windchill Administrator) 6 mg IV Q4H PRN; Protocol PRN Reason: Pain, moderate (4-7) Last Admin: 05/18/18 14:02 Dose: 6 mg Ketorolac Tromethamine (Toradol) 30 mg IVP Q8 [facility] Stop: 05/21/18 06:01 Rosuvastatin Calcium (Crestor) 10 mg PO HS [facility] Last Admin: 05/18/18 21:50 Dose: 10 mg - Labs Labs: 05/19/18 11:21 05/19/18 11:21 PT 15.4 SECONDS (9.7-12.2) H 05/19/18 11:21 INR 1.4 05/19/18 11:21 APTT 31 SECONDS (21-34) 05/19/18 11:21 - Extremities Exam Additional comments: LLE: +ROM ankle/toes, sensation intact +DP/PT pulses calves soft NTneg homans Assessment and Plan (1) Closed intertrochanteric fracture of left hip Assessment & Plan: plan for ORIF left hip on Wed05/19, last eliquis 05/16, last lovenox this am 80mg (held per Dr. Vásquez now) cardiology consulation appreciated venodynes added tylenol and toradol for pain control IS colace, dulcolax for now for OR per Dr. Vásquez Status: Acute
--- NOTE | 2018-05-19 14:22 | CARD ---
APPROVED REPORT Date of service: 05/17/2018 EKG Measurement Heart [id number] [id number] <Conclusion> Normal sinus rhythm Left axis deviation Abnormal ECG
--- NOTE | 2018-05-19 21:31 | CP.PCM.PN ---
Subjective - Date & Time of Evaluation Date of Evaluation: 05/19/18 Time of Evaluation: 11:30 - Subjective Subjective: clinically same Objective - Vital Signs/Intake and Output Vital Signs (last 24 hours): Temp Pulse Resp BP Pulse Ox 98.6 F 71 20 131/79 96 05/19/18 17:14 05/19/18 15:37 05/19/18 15:37 05/19/18 17:14 05/19/18 15:37 - Medications Medications: Current Medications Acetaminophen (Tylenol 325mg Tab) 650 mg PO Q6 [facility] Last Admin: 05/19/18 17:14 Dose: 650 mg Docusate Sodium (Colace) 100 mg PO TID [facility] Last Admin: 05/19/18 17:14 Dose: 100 mg Enalapril Maleate (Vasotec) 10 mg PO BID [facility] Last Admin: 05/19/18 17:14 Dose: 10 mg Enoxaparin Sodium (Lovenox) 80 mg SC Q12 [facility] Last Admin: 05/19/18 10:08 Dose: 80 mg Hydromorphone/Sodium Chloride (Dilaudid Rail Doweling Machine Operator) 6 mg IV Q4H PRN; Protocol PRN Reason: Pain, moderate (4-7) Last Admin: 05/18/18 14:02 Dose: 6 mg Ketorolac Tromethamine (Toradol) 30 mg IVP Q8 [facility] Stop: 05/21/18 06:01 Last Admin: 05/19/18 21:08 Dose: 30 mg Rosuvastatin Calcium (Crestor) 10 mg PO HS [facility] Last Admin: 05/19/18 21:07 Dose: 10 mg - Labs Labs: 05/19/18 11:21 05/19/18 11:21 PT 15.4 SECONDS (9.7-12.2) H 05/19/18 11:21 INR 1.4 05/19/18 11:21 APTT 31 SECONDS (21-34) 05/19/18 11:21 - Constitutional Appears: Well - Head Exam Head Exam: ATRAUMATIC, NORMAL INSPECTION, NORMOCEPHALIC - Eye Exam Eye Exam: EOMI, Normal appearance, PERRL Pupil Exam: NORMAL ACCOMODATION, PERRL - ENT Exam ENT Exam: Mucous Membranes Moist, Normal Exam - Neck Exam Neck Exam: Full ROM, Normal Inspection. absent: Lymphadenopathy - Respiratory Exam Respiratory Exam: Decreased Breath Sounds - Cardiovascular Exam Cardiovascular Exam: REGULAR RHYTHM, +S1, +S2 - GI/Abdominal Exam GI & Abdominal Exam: Soft, Diminished Bowel Sounds - Rectal Exam Rectal Exam: Deferred
[2018-05-20 07:00] LABS: HEMOGLOBIN 11.8 g/dL (12.0-18.0); MEAN CELL VOLUME 92.3 fL (80.0-94.0); MEAN CORPUSCULAR HEMOGLOBIN 31.9 pg (27.0-31.0); MEAN CORPUSCULAR HGB CONC 34.6 g/dL (33.0-37.0); MEAN PLATELET VOLUME 9.8 fL (7.2-11.7); RBC 3.7 Mil/uL (4.40-5.90)
[2018-05-20 07:21] LABS: BLOOD UREA NITROGEN 21 mg/dL (9-20); CALCIUM 8.5 mg/dl (8.6-10.4); GFR NON-AFRICAN AMERICAN > 60
[2018-05-20 07:27] LABS: INR 1.3; PROTHROMBIN TIME 14.4 SECONDS (9.7-12.2)
--- NOTE | 2018-05-20 11:08 | CP.PCM.PN ---
<Rafael Randall - Last Filed: 05/20/18 15:14> Subjective - Date & Time of Evaluation Date of Evaluation: 05/20/18 Time of Evaluation: 10:00 - Subjective Subjective: Patient seen and examined at bedside. No overnight events reported. Pain is controlled. He denies any fevers, chills, SOB, chest pain, abdominal pain nausea or vomiting. Patient is still constipated. Is aware of procedure. Objective - Vital Signs/Intake and Output Vital Signs (last 24 hours): Temp Pulse Resp BP Pulse Ox 97.9 F 72 20 105/67 95 05/20/18 07:05 05/20/18 07:05 05/20/18 07:05 05/20/18 09:52 05/20/18 07:05 Intake and Output: 05/20/18 05/20/18 06:59 18:59 Intake Total 1 Balance 1 - Medications Medications: Current Medications Acetaminophen (Tylenol 325mg Tab) 650 mg PO Q6 [facility] Last Admin: 05/20/18 05:53 Dose: Not Given Docusate Sodium (Colace) 100 mg PO TID [facility] Last Admin: 05/20/18 09:52 Dose: 100 mg Enalapril Maleate (Vasotec) 10 mg PO BID [facility] Last Admin: 05/20/18 09:52 Dose: 10 mg Enoxaparin Sodium (Lovenox) 80 mg SC Q12 [facility] Last Admin: 05/19/18 10:08 Dose: 80 mg Hydromorphone/Sodium Chloride (Dilaudid Biology Internship) 6 mg IV Q4H PRN; Protocol PRN Reason: Pain, moderate (4-7) Last Admin: 05/18/18 14:02 Dose: 6 mg Ketorolac Tromethamine (Toradol) 30 mg IVP Q8 [facility] Stop: 05/21/18 06:01 Last Admin: 05/20/18 09:54 Dose: 30 mg Rosuvastatin Calcium (Crestor) 10 mg PO HS [facility] Last Admin: 05/19/18 21:07 Dose: 10 mg - Labs Labs: 05/20/18 06:54 05/20/18 06:54 PT 14.4 SECONDS (9.7-12.2) H 05/20/18 06:54 INR 1.3 05/20/18 06:54 APTT 31 SECONDS (21-34) 05/19/18 11:21 - Constitutional Appears: Well, Non-toxic, No Acute Distress - Head Exam Head Exam: ATRAUMATIC, NORMAL INSPECTION, NORMOCEPHALIC - Eye Exam Eye Exam: EOMI, Normal appearance - ENT Exam ENT Exam: Mucous Membranes Moist - Respiratory Exam Respiratory Exam: Clear to Ausculation Bilateral. absent: Accessory Muscle Use - Cardiovascular Exam Cardiovascular Exam: RRR, +S1, +S2 - GI/Abdominal Exam GI & Abdominal Exam: Soft, Normal Bowel Sounds. absent: Tenderness - Extremities Exam Extremities Exam: Normal Capillary Refill. absent: Pedal Edema Additional comments: +ROM ankle/toes, sensation intact, calves soft NT neg homans +DP/PT - Neurological Exam Neurological Exam: Alert, Awake, Oriented x3 - Psychiatric Exam Psychiatric exam: Normal Affect, Normal Mood - Skin Skin Exam: Dry, Intact, Normal Color, Warm Assessment and Plan - Assessment and Plan (Free Text) Assessment: 78 year old male with a past medical history of hypertension and hypercholesterolemia s/p mechanical fall presents with hip fracture. Plan: Left intertrochanteric fracture Femur xray:Acute comminuted mildly displaced left intertrochanteric fracture. No dislocation of the Left hip xray:Acute comminuted mildly displaced left intertrochanteric fracture. No dislocation. l/s spine xray:No fracture, lytic lesion or subluxation seen. Thoracic and lumbar level spondylosis. Other findings as above. Orthopedics Dr. Vásquez consulted. Help appreciated. Cardiology Dr. Coughlin consulted. Help appreciated. Patient to have surgery for repair. Prior to surgery patient must be off of anticoagulation for 5 days prior. Constipation Colace 100mg PO TID Phosphate Enema 135ml x 2 on 05/19 Miralax to be given once today. HTN -Continue Vasotec 10mg PO BID [facility] HLD -Continue Crestor 10mg PO HS [facility]KKI Paroxysmal atrial fibrillation -On Eliqus at home without history of bleed. -Eliquis (HELD for Surgery) -Lovenox 80mg SC Q12 (HELD for surgery) PPX GI ppx not indicated at this time. SCD's Lovenox/Eliquis Held for surgery on Saturday05/21/18 NPO After MIDNIGHT for surgery on 05/21/18 Dispo: Patient to have hip repair after being off of anticoagulation for 5 days total. Scheduled for OR tomorrow. All management per Dr. Mimi Garcia. Rafael Randall, PGY-2 <Danica Garcia S - Last Filed: 05/20/18 22:38> Objective - Vital Signs/Intake and Output Vital Signs (last 24 hours): Temp Pulse Resp BP Pulse Ox 98 F 65 20 106/65 95 05/20/18 15:45 05/20/18 15:45 05/20/18 15:45 05/20/18 19:35 05/20/18 15:45 Intake and Output: 05/20/18 05/21/18 18:59 06:59 Intake Total 280 Output Total 0 Balance 280 - Medications Medications: Current Medications Acetaminophen (Tylenol 325mg Tab) 650 mg PO Q6 [facility] Last Admin: 05/20/18 18:29 Dose: 650 mg Docusate Sodium (Colace) 100 mg PO TID [facility] Last Admin: 05/20/18 19:35 Dose: 100 mg Enalapril Maleate (Vasotec) 10 mg PO BID [facility] Last Admin: 05/20/18 19:35 Dose: 10 mg Enoxaparin Sodium (Lovenox) 80 mg SC Q12 [facility] Last Admin: 05/19/18 10:08 Dose: 80 mg Hydromorphone/Sodium Chloride (Dilaudid Biology Internship) 6 mg IV Q4H PRN; Protocol PRN Reason: Pain, moderate (4-7) Last Admin: 05/18/18 14:02 Dose: 6 mg Sodium Chloride (Sodium Chloride 0.9%) 1,000 mls @ 80 mls/hr IV .[id number] [facility] Stop: 05/21/18 08:29 Last Admin: 05/20/18 22:36 Dose: 80 mls/hr Ketorolac Tromethamine (Toradol) 30 mg IVP Q8 [facility] Stop: 05/21/18 06:01 Last Admin: 05/20/18 22:26 Dose: 30 mg Rosuvastatin Calcium (Crestor) 10 mg PO HS [facility] Last Admin: 05/20/18 22:27 Dose: 10 mg - Labs Labs: 05/20/18 06:54 05/20/18 06:54 PT 14.4 SECONDS (9.7-12.2) H 05/20/18 06:54 INR 1.3 05/20/18 06:54 APTT 31 SECONDS (21-34) 05/19/18 11:21 Assessment and Plan (1) Closed intertrochanteric fracture of left hip Status: Acute (2) Hip fracture Status: Acute Attending/Attestation - Attestation I have personally seen and examined this patient.: Yes I have fully participated in the care of the patient.: Yes I have reviewed all pertinent clinical information, including history, physical exam and plan: Yes Notes (Text): 05/20/18 22:37 For surgery tomorrow morning patient is medically stable discussed with the medical records analyst staff agree pt wit fracture hip
[2018-05-20] MEDS ORDERED: Sodium Chloride 0.9% 1,000 ML IV SCH (11:30)
--- NOTE | 2018-05-20 11:33 | CP.PCM.PN ---
Subjective - Date & Time of Evaluation Date of Evaluation: 05/20/18 Time of Evaluation: 11:34 - Subjective Subjective: Patient with family at bedside. Pain is much more controlled today. Still no BM. He did pass gas after the enema. Denies CP/SOB/dizziness. Objective - Vital Signs/Intake and Output Vital Signs (last 24 hours): Temp Pulse Resp BP Pulse Ox 97.9 F 72 20 105/67 95 05/20/18 07:05 05/20/18 07:05 05/20/18 07:05 05/20/18 09:52 05/20/18 07:05 Intake and Output: 05/20/18 05/20/18 06:59 18:59 Intake Total 1 Balance 1 - Medications Medications: Current Medications Acetaminophen (Tylenol 325mg Tab) 650 mg PO Q6 [facility] Last Admin: 05/20/18 05:53 Dose: Not Given Docusate Sodium (Colace) 100 mg PO TID [facility] Last Admin: 05/20/18 09:52 Dose: 100 mg Enalapril Maleate (Vasotec) 10 mg PO BID [facility] Last Admin: 05/20/18 09:52 Dose: 10 mg Enoxaparin Sodium (Lovenox) 80 mg SC Q12 [facility] Last Admin: 05/19/18 10:08 Dose: 80 mg Hydromorphone/Sodium Chloride (Dilaudid Manager Ui) 6 mg IV Q4H PRN; Protocol PRN Reason: Pain, moderate (4-7) Last Admin: 05/18/18 14:02 Dose: 6 mg Sodium Chloride (Sodium Chloride 0.9%) 1,000 mls @ 80 mls/hr IV .[id number] [facility] Stop: 05/21/18 08:29 Ketorolac Tromethamine (Toradol) 30 mg IVP Q8 [facility] Stop: 05/21/18 06:01 Last Admin: 05/20/18 09:54 Dose: 30 mg Rosuvastatin Calcium (Crestor) 10 mg PO HS [facility] Last Admin: 05/19/18 21:07 Dose: 10 mg - Labs Labs: 05/20/18 06:54 05/20/18 06:54 PT 14.4 SECONDS (9.7-12.2) H 05/20/18 06:54 INR 1.3 05/20/18 06:54 APTT 31 SECONDS (21-34) 05/19/18 11:21 - Extremities Exam Additional comments: Left LE: +ROM ankle/toes, senation intact, calves soft NT neg homans +DP/PT Assessment and Plan (1) Closed intertrochanteric fracture of left hip Assessment & Plan: for OR tomorrow T&C u/a d/w Dr. Vásquez agrees with above Status: Acute
[2018-05-20] MEDS ORDERED: POLYETHYLENE GLYCOL 3350 17 GM/Dose PACKET PO ONE (15:13)
[2018-05-20] MEDS ORDERED: Magnesium Citrate Oral SOL (300 ml) PO ONE (18:59)
--- NOTE | 2018-05-20 18:59 | CP.PCM.PN ---
Subjective - Date & Time of Evaluation Date of Evaluation: 05/20/18 Time of Evaluation: 10:45 - Subjective Subjective: clinically same Objective - Vital Signs/Intake and Output Vital Signs (last 24 hours): Temp Pulse Resp BP Pulse Ox 98 F 65 20 106/65 95 05/20/18 15:45 05/20/18 15:45 05/20/18 15:45 05/20/18 15:45 05/20/18 15:45 Intake and Output: 05/20/18 05/20/18 06:59 18:59 Intake Total 1 280 Output Total 0 Balance 1 280 - Medications Medications: Current Medications Acetaminophen (Tylenol 325mg Tab) 650 mg PO Q6 [facility] Last Admin: 05/20/18 12:50 Dose: 650 mg Docusate Sodium (Colace) 100 mg PO TID [facility] Last Admin: 05/20/18 14:11 Dose: 100 mg Enalapril Maleate (Vasotec) 10 mg PO BID [facility] Last Admin: 05/20/18 09:52 Dose: 10 mg Enoxaparin Sodium (Lovenox) 80 mg SC Q12 [facility] Last Admin: 05/19/18 10:08 Dose: 80 mg Hydromorphone/Sodium Chloride (Dilaudid Barley Steeper) 6 mg IV Q4H PRN; Protocol PRN Reason: Pain, moderate (4-7) Last Admin: 05/18/18 14:02 Dose: 6 mg Sodium Chloride (Sodium Chloride 0.9%) 1,000 mls @ 80 mls/hr IV .[id number] [facility] Stop: 05/21/18 08:29 Ketorolac Tromethamine (Toradol) 30 mg IVP Q8 [facility] Stop: 05/21/18 06:01 Last Admin: 05/20/18 14:11 Dose: 30 mg Rosuvastatin Calcium (Crestor) 10 mg PO HS [facility] Last Admin: 05/19/18 21:07 Dose: 10 mg - Labs Labs: 05/20/18 06:54 05/20/18 06:54 PT 14.4 SECONDS (9.7-12.2) H 05/20/18 06:54 INR 1.3 05/20/18 06:54 APTT 31 SECONDS (21-34) 05/19/18 11:21 - Constitutional Appears: Well - Head Exam Head Exam: ATRAUMATIC, NORMAL INSPECTION, NORMOCEPHALIC - Eye Exam Eye Exam: EOMI, Normal appearance, PERRL Pupil Exam: NORMAL ACCOMODATION, PERRL - ENT Exam ENT Exam: Mucous Membranes Moist, Normal Exam - Neck Exam Neck Exam: Full ROM, Normal Inspection. absent: Lymphadenopathy - Respiratory Exam Respiratory Exam: Decreased Breath Sounds - Cardiovascular Exam Cardiovascular Exam: REGULAR RHYTHM, +S1, +S2 - GI/Abdominal Exam GI & Abdominal Exam: Soft, Diminished Bowel Sounds - Rectal Exam Rectal Exam: Deferred Assessment and Plan (1) Closed intertrochanteric fracture of left hip Status: Acute (2) Hip fracture Status: Acute - Assessment and Plan (Free Text) Plan: pt medically stable for surg loveno on hold disucsed iw pt and famy everyday Plan: Left intertrochanteric fracture Femur xray:Acute comminuted mildly displaced left intertrochanteric fracture. No dislocation of the Left hip xray:Acute comminuted mildly displaced left intertrochanteric fracture. No dislocation. l/s spine xray:No fracture, lytic lesion or subluxation seen. Thoracic and lumbar level spondylosis. Other findings as above. Orthopedics Dr. Vásquez consulted. Help appreciated. Cardiology Dr. Coughlin consulted. Help appreciated. Patient to have surgery for repair. Prior to surgery patient must be off of anticoagulation for 5 days prior. Constipation Colace 100mg PO TID Phosphate Enema 135ml x 2 on 05/19 Miralax to be given once today. HTN -Continue Vasotec 10mg PO BID [facility] HLD -Continue Crestor 10mg PO HS [facility] Paroxysmal atrial fibrillation -On Eliqus at home without history of bleed. -Eliquis (HELD for Surgery) -Lovenox 80mg SC Q12 (HELD for surgery) PPX GI ppx not indicated at this time. SCD's Lovenox/Eliquis Held for surgery on Saturday05/21/18 NPO After MIDNIGHT for surgery on 05/21/18 Dispo: Patient to have hip repair after being off of anticoagulation for 5 days total. Scheduled for OR tomorrow.
[2018-05-20 21:54] LABS: SQUAMOUS EPITHIAL < 1 /hpf (0-5); URINE BILIRUBIN NEGATIVE (NEGATIVE); URINE BLOOD NEGATIVE (NEGATIVE); URINE CLARITY Clear (Clear); URINE COLOR Amber (YELLOW); URINE GLUCOSE (UA) NORMAL (Normal); URINE LEUKOCYTE ESTERASE NEG Leu/uL (Negative); URINE PROTEIN NEGATIVE (NEGATIVE)
[2018-05-20] MEDS: Sodium Chloride 0.9% 1,000 ML IV SCH ×2 (22:28→22:36)
[2018-05-21 07:44] LABS: HEMOGLOBIN 11.3 g/dL (12.0-18.0); MEAN CELL VOLUME 92.9 fL (80.0-94.0); MEAN CORPUSCULAR HEMOGLOBIN 31.8 pg (27.0-31.0); MEAN CORPUSCULAR HGB CONC 34.2 g/dL (33.0-37.0); MEAN PLATELET VOLUME 9.5 fL (7.2-11.7); RBC 3.56 Mil/uL (4.40-5.90); RED CELL DISTRIBUTION WIDTH 14.2 % (11.5-14.5); WHITE BLOOD COUNT 5.7 K/uL (4.8-10.8)
[2018-05-21 07:57] LABS: PROTHROMBIN TIME 14.2 SECONDS (9.7-12.2)
[2018-05-21 07:58] LABS: INR 1.3
[2018-05-21 08:03] LABS: ALB/GLOB RATIO 1.3 (1.0-2.1); ALBUMIN 3.4 g/dL (3.5-5.0); ALT/SGPT 37 U/L (21-72); AST/SGOT 26 U/L (17-59); BLOOD UREA NITROGEN 25 mg/dL (9-20); CALCIUM 8.3 mg/dl (8.6-10.4); GFR NON-AFRICAN AMERICAN > 60
[2018-05-21] MEDS ORDERED: Bacitracin 150,000 UNIT in Sodium Chloride 0.9% Irrig 3,000 ML IR SCH (11:45)
[2018-05-21] MEDS ORDERED: Morphine 1 mg/ml preservative-free Inj(Duramorph) ONE (12:14)
[2018-05-21] MEDS ORDERED: Midazolam 2 MG/2 ML VIAL ONE (12:22)
[2018-05-21] MEDS ORDERED: Propofol 10 mg/ml Inj (20 ML) ONE (12:22)
[2018-05-21] MEDS ORDERED: ceFAZolin 1 gm in NS 1 GM/100 ML BAG IVPB ONE (12:38)
--- NOTE | 2018-05-21 12:58 | CP.PCM.PN ---
Subjective - Date & Time of Evaluation Date of Evaluation: 05/21/18 Time of Evaluation: 10:30 - Subjective Subjective: Patient seen and examined at bedside. No overnight events reported. He denies any fevers, chills, SOB, chest pain, abdominal pain nausea or vomiting. Patient is still constipated. Is aware of procedure today. Complains of left knee p ain. Objective - Vital Signs/Intake and Output Vital Signs (last 24 hours): Temp Pulse Resp BP Pulse Ox 98.7 F 68 18 116/73 95 05/21/18 07:00 05/21/18 07:00 05/21/18 07:00 05/21/18 09:49 05/21/18 07:00 Intake and Output: 05/21/18 05/21/18 06:59 18:59 Intake Total 640 Balance 640 - Medications Medications: Current Medications Acetaminophen (Tylenol 325mg Tab) 650 mg PO Q6 [facility] Last Admin: 05/21/18 05:55 Dose: Not Given Docusate Sodium (Colace) 100 mg PO TID [facility] Last Admin: 05/21/18 09:50 Dose: 100 mg Enalapril Maleate (Vasotec) 10 mg PO BID [facility] Last Admin: 05/21/18 09:49 Dose: 10 mg Enoxaparin Sodium (Lovenox) 80 mg SC Q12 [facility] Last Admin: 05/19/18 10:08 Dose: 80 mg Hydromorphone/Sodium Chloride (Dilaudid Baler) 6 mg IV Q4H PRN; Protocol PRN Reason: Pain, moderate (4-7) Last Admin: 05/21/18 05:56 Dose: 6 mg Bacitracin 150,000 unit/ (Sodium Chloride) 3,000 mls @ 3,000 mls/hr IR .Q1H [facility]; Protocol Stop: 05/21/18 13:44 Rosuvastatin Calcium (Crestor) 10 mg PO HS [facility] Last Admin: 05/20/18 22:27 Dose: 10 mg - Labs Labs: 05/21/18 07:20 05/21/18 07:20 PT 14.2 SECONDS (9.7-12.2) H 05/21/18 07:20 INR 1.3 05/21/18 07:20 APTT 31 SECONDS (21-34) 05/19/18 11:21 - Additional Findings Additional findings: - Constitutional Appears: Well, Non-toxic, No Acute Distress - Head Exam Head Exam: ATRAUMATIC, NORMAL INSPECTION, NORMOCEPHALIC - Eye Exam Eye Exam: EOMI, Normal appearance - ENT Exam ENT Exam: Mucous Membranes Moist - Respiratory Exam Respiratory Exam: Clear to Ausculation Bilateral. absent: Accessory Muscle Use - Cardiovascular Exam Cardiovascular Exam: RRR, +S1, +S2 - GI/Abdominal Exam GI & Abdominal Exam: Soft, Normal Bowel Sounds. absent: Tenderness - Extremities Exam Extremities Exam: Normal Capillary Refill. absent: Pedal Edema Additional comments: +ROM ankle/toes, sensation intact, calves soft NT neg homans +DP/PT - Neurological Exam Neurological Exam: Alert, Awake, Oriented x3 - Psychiatric Exam Psychiatric exam: Normal Affect, Normal Mood - Skin Skin Exam: Dry, Intact, Normal Color, Warm Assessment and Plan - Assessment and Plan (Free Text) Assessment: 78 year old male with a past medical history of hypertension and hypercholesterolemia s/p mechanical fall presents with hip fracture. Plan: Left intertrochanteric fracture Femur xray:Acute comminuted mildly displaced left intertrochanteric fracture. No dislocation of the Left hip xray:Acute comminuted mildly displaced left intertrochanteric fracture. No dislocation. l/s spine xray:No fracture, lytic lesion or subluxation seen. Thoracic and lumbar level spondylosis. Other findings as above. Orthopedics Dr. Vásquez consulted. Help appreciated. Cardiology Dr. Coughlin consulted. Help appreciated. Patient to have surgery for repair. Prior to surgery patient must be off of anticoagulation for 5 days prior. Constipation Colace 100mg PO TID Phosphate Enema 135ml x 2 on 05/19 Miralax Daily. HTN -Continue Vasotec 10mg PO BID [facility] HLD -Continue Crestor 10mg PO HS [facility] Paroxysmal atrial fibrillation -On Eliqus at home without history of bleed. -Eliquis (HELD for Surgery) -Lovenox 80mg SC Q12 (HELD for surgery) PPX GI ppx not indicated at this time. SCD's Lovenox/Eliquis Held for surgery on Saturday05/21/18 Dispo: Patient to have hip repair after being off of anticoagulation for 5 days total. Scheduled for OR today All management per Dr. Mimi Garcia. Rafael Randall, PGY-2
[2018-05-21] MEDS: ceFAZolin 1 gm in NS 2 GM/200 ML BAG IVPB ONE ×2 (13:45→13:50)
[2018-05-21] MEDS ORDERED: Neostigmine 1:1000 (1 mg/ml) Inj ONE (15:01)
[2018-05-21] MEDS ORDERED: Bacitracin Ointment 30 GM TUBE ONE (15:05)
[2018-05-21] MEDS ORDERED: HYDROmorphone 0.5 mg/0.5 ml ISec IVP PRN (15:42)
--- NOTE | 2018-05-21 15:51 | PCM.SURG1 ---
Surgeon's Initial Post Op Note - Surgeon's Notes Surgeon: Julita Vásuqez MD Professor Of Mechanical Engineering: Angelita Siddiqui CRNA Type of Anesthesia: General Endo, Spinal Anesthesia Administered By: Dr. Tellez Pre-Operative Diagnosis: Left hip intertrochanteric fracture Operative Findings: same Post-Operative Diagnosis: same Operation Performed: Left hip intertroch ORIF intramedullary nailing with locking screw. autograph/allograft bone graft to femur. interpretation of flouroscopic images Specimen/Specimens Removed: none Estimated Blood Loss: EBL {In ML}: 200 Blood Products Given: N/A Drains Used: No Drains Post-Op Condition: Fair Date of Surgery/Procedure: 05/21/18 Time of Surgery/Procedure: 15:51
--- NOTE | 2018-05-21 16:55 | RAD ---
Indication: pt in pacu s/p ORIF left hip Left hip radiographs, two views Comparison: Left hip radiographs performed 05/16/18 Findings: Diffuse osseous demineralization limits evaluation for acute fracture lines. Metallic manan and screw fixation of the comminuted left intratrochanteric fracture. Surgical skin chante. Soft tissue swelling and subcutaneous emphysema. Otherwise no significant interval change. Impression: Postoperative ORIF, proximal left femur.
--- NOTE | 2018-05-21 19:03 | CP.PCM.PN ---
Subjective - Date & Time of Evaluation Date of Evaluation: 05/21/18 Time of Evaluation: 09:45 - Subjective Subjective: clinically same Objective - Vital Signs/Intake and Output Vital Signs (last 24 hours): Temp Pulse Resp BP Pulse Ox 98 F 105 H 20 112/69 94 L 05/21/18 18:27 05/21/18 18:27 05/21/18 18:27 05/21/18 18:42 05/21/18 18:27 Intake and Output: 05/21/18 05/22/18 18:59 06:59 Intake Total 2400 Balance 2400 - Medications Medications: Current Medications Acetaminophen (Tylenol 325mg Tab) 650 mg PO Q6 [facility] Last Admin: 05/21/18 18:42 Dose: 650 mg Docusate Sodium (Colace) 100 mg PO TID [facility] Last Admin: 05/21/18 18:42 Dose: 100 mg Enalapril Maleate (Vasotec) 10 mg PO BID [facility] Last Admin: 05/21/18 18:42 Dose: 10 mg Enoxaparin Sodium (Lovenox) 80 mg SC Q12 [facility] Last Admin: 05/19/18 10:08 Dose: 80 mg Enoxaparin Sodium (Lovenox) 40 mg SC Q24H [facility] Hydromorphone HCl (Dilaudid) 0.5 mg IVP Q4H PRN PRN Reason: Pain, severe (8-10) Hydromorphone/Sodium Chloride (Dilaudid [employer] Manager) 6 mg IV Q4H PRN; Protocol PRN Reason: Pain, moderate (4-7) Last Admin: 05/21/18 05:56 Dose: 6 mg Cefazolin Sodium/Dextrose (Ancef Iv 2 Gm Duplex) 2 gm in 50 mls @ 100 mls/hr IVPB Q8H [facility]; Protocol Stop: 05/22/18 04:29 Sodium Chloride (Sodium Chloride 0.9%) 1,000 mls @ 100 mls/hr IV .Q10H [facility] Stop: 05/22/18 11:59 Polyethylene Glycol (Miralax) 17 gm PO DAILY [facility] Rosuvastatin Calcium (Crestor) 10 mg PO HS [facility] Last Admin: 05/20/18 22:27 Dose: 10 mg - Labs Labs: 05/21/18 07:20 05/21/18 07:20 PT 14.2 SECONDS (9.7-12.2) H 05/21/18 07:20 INR 1.3 05/21/18 07:20 APTT 31 SECONDS (21-34) 05/19/18 11:21 - Constitutional Appears: Well - Head Exam Head Exam: ATRAUMATIC, NORMAL INSPECTION, NORMOCEPHALIC - Eye Exam Eye Exam: EOMI, Normal appearance, PERRL Pupil Exam: NORMAL ACCOMODATION, PERRL - ENT Exam ENT Exam: Mucous Membranes Moist, Normal Exam - Neck Exam Neck Exam: Full ROM, Normal Inspection. absent: Lymphadenopathy - Respiratory Exam Respiratory Exam: Decreased Breath Sounds - Cardiovascular Exam Cardiovascular Exam: REGULAR RHYTHM, +S1, +S2 - GI/Abdominal Exam GI & Abdominal Exam: Soft, Diminished Bowel Sounds - Rectal Exam Rectal Exam: Deferred Assessment and Plan (1) Closed intertrochanteric fracture of left hip Status: Acute (2) Hip fracture Status: Acute
[2018-05-21] MEDS: Sodium Chloride 0.9% 1,000 ML IV SCH (20:56)
[2018-05-21] MEDS: ceFAZolin IV 2 gm in Dextrose 2 GM/50 ML BAG IVPB SCH (21:10)
[2018-05-22] MEDS: ceFAZolin IV 2 gm in Dextrose 2 GM/50 ML BAG IVPB SCH (04:05)
[2018-05-22] MEDS: HYDROmorphone 0.5 mg/0.5 ml ISec IVP PRN ×3 (07:29→23:13)
[2018-05-22] MEDS: Sodium Chloride 0.9% 1,000 ML IV SCH (07:30)
[2018-05-22 07:35] LABS: MEAN CELL VOLUME 91.8 fL (80.0-94.0); MEAN CORPUSCULAR HEMOGLOBIN 31.9 pg (27.0-31.0); MEAN CORPUSCULAR HGB CONC 34.7 g/dL (33.0-37.0); MEAN PLATELET VOLUME 8.7 fL (7.2-11.7); RBC 2.91 Mil/uL (4.40-5.90); RED CELL DISTRIBUTION WIDTH 13.8 % (11.5-14.5); WHITE BLOOD COUNT 6.2 K/uL (4.8-10.8)
[2018-05-22 08:15] LABS: HEMOGLOBIN 9.4 g/dL (12.0-18.0)
[2018-05-22] MEDS ORDERED: Oxycodone/Acetaminophen 5/325 mg Tab PO PRN ×2 (08:17)
[2018-05-22 08:26] LABS: ALB/GLOB RATIO 1.2 (1.0-2.1); ALBUMIN 2.8 g/dL (3.5-5.0); ALT/SGPT 35 U/L (21-72); AST/SGOT 35 U/L (17-59); BLOOD UREA NITROGEN 22 mg/dL (9-20); CALCIUM 7.8 mg/dl (8.6-10.4); GFR NON-AFRICAN AMERICAN > 60
--- NOTE | 2018-05-22 08:54 | RAD ---
Date of service: 05/21/2018 PROCEDURE: Intraoperative Fluoroscopy. HISTORY: LEFT HIP FX FINDINGS: Fluoroscopic assistance was provided. Fluoroscopy time = 85.3 sec. Radiation dose = 11.16 mGy. Please refer to the operative report from LAUREN Morales.
[2018-05-22] MEDS: POLYETHYLENE GLYCOL 3350 17 GM/Dose PACKET PO SCH (10:39)
[2018-05-22] MEDS: Docusate-Senna 50 mg-8.6 mg Tab PO SCH (10:42)
[2018-05-22] MEDS ORDERED: Enoxaparin 40 mg Syringe SC SCH (14:00)
--- NOTE | 2018-05-22 14:45 | CP.PCM.PN ---
Subjective - Date & Time of Evaluation Date of Evaluation: 05/22/18 Time of Evaluation: 07:30 - Subjective Subjective: Patient seen and examined at bedside comfortable. Pain well controlled. 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 Had urinary retention overnight and was straight cathetered. This morning he is comfortable without urgency. Denies CP/SOB/dizziness/fever. Objective - Vital Signs/Intake and Output Vital Signs (last 24 hours): Temp Pulse Resp BP Pulse Ox 99.0 F 78 20 97/59 L 90 L 05/22/18 08:00 05/22/18 08:00 05/22/18 08:00 05/22/18 10:42 05/22/18 08:00 Intake and Output: 05/22/18 05/22/18 06:59 18:59 Intake Total 1910 Output Total 975 Balance 935 - Medications Medications: Current Medications Acetaminophen (Tylenol 325mg Tab) 650 mg PO Q6 [facility] Last Admin: 05/22/18 13:00 Dose: 650 mg Apixaban (Eliquis) 5 mg PO BID [facility] Last Admin: 05/22/18 10:45 Dose: 5 mg Aspirin (Ecotrin) 81 mg PO DAILY [facility] Last Admin: 05/22/18 10:42 Dose: 81 mg Docusate Sodium (Colace) 100 mg PO TID [facility] Last Admin: 05/22/18 13:23 Dose: 100 mg Enalapril Maleate (Vasotec) 10 mg PO BID [facility] Last Admin: 05/22/18 10:42 Dose: Not Given Ferrous Sulfate (Feosol) 325 mg PO BID [facility] Last Admin: 05/22/18 10:45 Dose: 325 mg Folic Acid (Folic Acid) 1 mg PO DAILY [facility] Last Admin: 05/22/18 10:42 Dose: 1 mg Hydromorphone HCl (Dilaudid) 0.5 mg IVP Q4H PRN PRN Reason: Pain, severe (8-10) Last Admin: 05/22/18 13:48 Dose: 0.5 mg Oxycodone/Acetaminophen (Percocet 5/325 Mg Tab) 2 tab PO Q4H PRN PRN Reason: Pain, moderate (4-7) Stop: 05/25/18 08:18 Last Admin: 05/22/18 08:45 Dose: 2 tab Oxycodone/Acetaminophen (Percocet 5/325 Mg Tab) 1 tab PO Q4H PRN PRN Reason: Pain, Mild (1-3) Stop: 05/25/18 08:18 Polyethylene Glycol (Miralax) 17 gm PO DAILY [facility] Last Admin: 05/22/18 10:39 Dose: 17 gm Rosuvastatin Calcium (Crestor) 10 mg PO HS [facility] Last Admin: 05/21/18 21:01 Dose: 10 mg Senna/Docusate Sodium (Senokot S 50 Mg-8.6 Mg) 1 tab PO DAILY [facility] Last Admin: 05/22/18 10:42 Dose: 1 tab - Labs Labs: 05/22/18 07:27 05/22/18 07:27 PT 14.2 SECONDS (9.7-12.2) H 05/21/18 07:20 INR 1.3 05/21/18 07:20 APTT 31 SECONDS (21-34) 05/19/18 11:21 - Extremities Exam Additional comments: LLE: Dressings CDI sensation intact SP/DP/TN motor intact EHL/FHL/TA/G pedal pulses intact calves soft NT b/l Assessment and Plan (1) Closed intertrochanteric fracture of left hip Assessment & Plan: POD#1 s/p L hip ORIF with IM nail -PT/OT TTWB LLE -DVT ppx -encourage OOB and ambulation to promote urination -discharge planning -above d/w Dr. Vásquez in agreement Status: Acute
[2018-05-22] MEDS ORDERED: Enoxaparin 40 mg Syringe SC ONE (16:05)
--- NOTE | 2018-05-22 16:15 | CP.PCM.PN ---
Subjective - Date & Time of Evaluation Date of Evaluation: 05/22/18 Time of Evaluation: 11:00 - Subjective Subjective: Patient seen and examined at bedside. Urinary retention reported overnight requiring straight cath. He reports left hip pain and left knee pain and swelling. He denies any calf pain. Patient also denies any fever, chills, Chest pain, abdominal pain, nausea, vomiting, or urinary symptoms. Patient does report being slightly short of breath. Patient also states he is still constipated. Objective - Vital Signs/Intake and Output Vital Signs (last 24 hours): Temp Pulse Resp BP Pulse Ox 99.0 F 78 20 97/59 L 90 L 05/22/18 08:00 05/22/18 08:00 05/22/18 08:00 05/22/18 10:42 05/22/18 08:00 Intake and Output: 05/22/18 05/22/18 06:59 18:59 Intake Total 1910 1400 Output Total 975 Balance 935 1400 - Medications Medications: Current Medications Acetaminophen (Tylenol 325mg Tab) 650 mg PO Q6 [facility] Last Admin: 05/22/18 13:00 Dose: 650 mg Apixaban (Eliquis) 5 mg PO BID [facility] Last Admin: 05/22/18 10:45 Dose: 5 mg Aspirin (Ecotrin) 81 mg PO DAILY [facility] Last Admin: 05/22/18 10:42 Dose: 81 mg Docusate Sodium (Colace) 100 mg PO TID [facility] Last Admin: 05/22/18 13:23 Dose: 100 mg Enalapril Maleate (Vasotec) 10 mg PO BID [facility] Last Admin: 05/22/18 10:42 Dose: Not Given Ferrous Sulfate (Feosol) 325 mg PO BID [facility] Last Admin: 05/22/18 10:45 Dose: 325 mg Folic Acid (Folic Acid) 1 mg PO DAILY [facility] Last Admin: 05/22/18 10:42 Dose: 1 mg Hydromorphone HCl (Dilaudid) 0.5 mg IVP Q4H PRN PRN Reason: Pain, severe (8-10) Last Admin: 05/22/18 13:48 Dose: 0.5 mg Oxycodone/Acetaminophen (Percocet 5/325 Mg Tab) 2 tab PO Q4H PRN PRN Reason: Pain, moderate (4-7) Stop: 05/25/18 08:18 Last Admin: 05/22/18 08:45 Dose: 2 tab Oxycodone/Acetaminophen (Percocet 5/325 Mg Tab) 1 tab PO Q4H PRN PRN Reason: Pain, Mild (1-3) Stop: 05/25/18 08:18 Polyethylene Glycol (Miralax) 17 gm PO DAILY [facility] Last Admin: 05/22/18 10:39 Dose: 17 gm Rosuvastatin Calcium (Crestor) 10 mg PO HS [facility] Last Admin: 05/21/18 21:01 Dose: 10 mg Senna/Docusate Sodium (Senokot S 50 Mg-8.6 Mg) 1 tab PO DAILY [facility] Last Admin: 05/22/18 10:42 Dose: 1 tab - Labs Labs: 05/22/18 07:27 05/22/18 07:27 PT 14.2 SECONDS (9.7-12.2) H 05/21/18 07:20 INR 1.3 05/21/18 07:20 APTT 31 SECONDS (21-34) 05/19/18 11:21 - Additional Findings Additional findings: - Constitutional Appears: Well, Non-toxic, No Acute Distress - Head Exam Head Exam: ATRAUMATIC, NORMAL INSPECTION, NORMOCEPHALIC - Eye Exam Eye Exam: EOMI, Normal appearance - ENT Exam ENT Exam: Mucous Membranes Moist - Respiratory Exam Respiratory Exam: Clear to Ausculation Bilateral. absent: Accessory Muscle Use - Cardiovascular Exam Cardiovascular Exam: RRR, +S1, +S2 - GI/Abdominal Exam GI & Abdominal Exam: Soft, Normal Bowel Sounds. absent: Tenderness - Extremities Exam Extremities Exam: Normal Capillary Refill. absent: Pedal Edema Additional comments: +ROM ankle/toes, sensation intact, calves soft NT neg homans +DP/PT +Edema in Left Knee and Pain at the Injection site. - Neurological Exam Neurological Exam: Alert, Awake, Oriented x3 - Psychiatric Exam Psychiatric exam: Normal Affect, Normal Mood - Skin Skin Exam: Dry, Intact, Normal Color, Warm Assessment and Plan - Assessment and Plan (Free Text) Assessment: 78 year old male with a past medical history of hypertension and hypercholesterolemia s/p mechanical fall presents with hip fracture. Plan: Left intertrochanteric fracture POD #1 s/p L Hip ORIF with IM nail. Orthopedics Dr. Vásquez consulted. Help appreciated. Cardiology Dr. Coughlin consulted. Help appreciated. Mgmt: Pain Control with Dialuded and Percocet per Ortho Team. Encourage Incentive Spirometer use. PT/OT Constipation Likley Opiod Induced Phosphate Enema 135ml x 2 on 05/19/18 Miralax Daily, Colace 100 BID, Lactulose 20grams PO BID HTN -Continue Vasotec 10mg PO BID [facility] HLD -Continue Crestor 10mg PO HS [facility] Paroxysmal atrial fibrillation -On Eliqus at home without history of bleed. -Cont. Eliquis 5mg BID PPX GI ppx not indicated at this time. SCD's Eliquis All management per Dr. Mimi Garcia. Rafael Randall, PGY-2
--- NOTE | 2018-05-22 17:06 | CP.PCM.PN ---
Subjective - Date & Time of Evaluation Date of Evaluation: 05/22/18 Time of Evaluation: 10:45 - Subjective Subjective: clinically same Objective - Vital Signs/Intake and Output Vital Signs (last 24 hours): Temp Pulse Resp BP Pulse Ox 98.5 F 73 20 119/73 97 05/22/18 16:57 05/22/18 16:57 05/22/18 16:57 05/22/18 16:57 05/22/18 16:57 Intake and Output: 05/22/18 05/22/18 06:59 18:59 Intake Total 1910 1400 Output Total 975 Balance 935 1400 - Medications Medications: Current Medications Acetaminophen (Tylenol 325mg Tab) 650 mg PO Q6 [facility] Last Admin: 05/22/18 13:00 Dose: 650 mg Apixaban (Eliquis) 5 mg PO BID [facility] Aspirin (Ecotrin) 81 mg PO DAILY [facility] Last Admin: 05/22/18 10:42 Dose: 81 mg Docusate Sodium (Colace) 100 mg PO BID [facility] Enalapril Maleate (Vasotec) 10 mg PO BID [facility] Last Admin: 05/22/18 10:42 Dose: Not Given Ferrous Sulfate (Feosol) 325 mg PO BID [facility] Last Admin: 05/22/18 10:45 Dose: 325 mg Folic Acid (Folic Acid) 1 mg PO DAILY [facility] Last Admin: 05/22/18 10:42 Dose: 1 mg Hydromorphone HCl (Dilaudid) 0.5 mg IVP Q4H PRN PRN Reason: Pain, severe (8-10) Last Admin: 05/22/18 13:48 Dose: 0.5 mg Lactulose (Enulose) 20 gm PO BID [facility] Oxycodone/Acetaminophen (Percocet 5/325 Mg Tab) 2 tab PO Q4H PRN PRN Reason: Pain, moderate (4-7) Stop: 05/25/18 08:18 Last Admin: 05/22/18 08:45 Dose: 2 tab Oxycodone/Acetaminophen (Percocet 5/325 Mg Tab) 1 tab PO Q4H PRN PRN Reason: Pain, Mild (1-3) Stop: 05/25/18 08:18 Polyethylene Glycol (Miralax) 17 gm PO DAILY [facility] Last Admin: 05/22/18 10:39 Dose: 17 gm Rosuvastatin Calcium (Crestor) 10 mg PO HS [facility] Last Admin: 05/21/18 21:01 Dose: 10 mg Senna/Docusate Sodium (Senokot S 50 Mg-8.6 Mg) 1 tab PO DAILY [facility] Last Admin: 05/22/18 10:42 Dose: 1 tab - Labs Labs: 05/22/18 07:27 05/22/18 07:27 PT 14.2 SECONDS (9.7-12.2) H 05/21/18 07:20 INR 1.3 05/21/18 07:20 APTT 31 SECONDS (21-34) 05/19/18 11:21 Assessment and Plan (1) Closed intertrochanteric fracture of left hip Status: Acute (2) Hip fracture Status: Acute
--- NOTE | 2018-05-23 03:01 | OP ---
PROCEDURE DATE: 05/21/2018 PREOPERATIVE DIAGNOSES: 1. Displaced comminuted intertrochanteric fracture of the left hip. 2. Status post mechanical fall. POSTOPERATIVE DIAGNOSES: 1. Displaced comminuted left intertrochanteric hip fracture. 2. Lipoma, left hip. OPERATIVE FINDINGS: 1. Displaced comminuted intertrochanteric fracture of the left hip. 2. Left hip lipoma. OPERATIVE PROCEDURE: 1. Open reduction and internal fixation, intertrochanteric fracture of the left femur with an interlocking intermedullary nail. 2. Excisional lipoma. 3. Autograft and allograft bone graft. 4. Positioning of fluoroscopic interpretation of video images. SURGEON: Filemon Vásquez MD [employer] SALES REPRESENTATIVE: Zina Nazario PA-C SECOND COURT MANAGER: ISSAC Gilbert OPERATIVE INDICATION: Dino Jaramillo is a 78-year-old gentleman who sustained a slip and fall on ice while shoveling snow. The patient presented to the emergency room at [facility] at 9:[address] Clara Garcia was the attending doctor director airport operations. Dr. Durán was consulted earlier in the day, did not respond. The patient responded very late in the afternoon at approximately 4 o'clock refusing the consult. I was notified at 5:13 p.m. and responded immediately. The patient was being anticoagulated with Eliquis, Lovenox, and aspirin. Although the patient was cleared cardiologically on Saturday, the magnitude and potential for bleeding risk with this fracture was very high. So, delay was made for surgery on Saturday. Pros, cons, risks and benefits of surgical approach were discussed with the patient and his family. The possibility of mechanical failure, infection, thromboembolic disease, possibility of secondary or tertiary surgery were discussed with them. No promises or guarantees were made. Again, the possibility of stiffness, nerve injury, secondary or tertiary surgery were discussed. DESCRIPTION OF PROCEDURE: After having obtained informed consent after having identified the side, site, and procedure, and a critical pause/timeout; after satisfactory induction of the anesthetic by Dr. Tellez, the patient was identified as Dino Jaramillo, he was placed in the supine position with all bony prominences well padded. The patient was placed on the traction table. Under the surgeon's direction, the fluoroscope was positioned. Video images were generated and therapeutic decisions were made therefrom. This having been accomplished and the critical pause/timeout, it was discovered that the patient had a severe allergy to iodine. Betadine sheet had been placed on the operative area. That was removed immediately when I discovered the error. There was no evidence of anaphylaxis or blood pressure drop. No skin reaction. The patient had no reaction. The operative setup was broken down and the patient was re-prepped and draped. After sterilely prepping and draping, again the fracture was verified. Under the surgeon's direction, the fluoroscope was positioned, video images were generated, and therapeutic decisions were made therefrom. Verification of the position was offered on AP and lateral image intensification views. This having been accomplished, an incision was described from the greater trochanter extending posteriorly. The skin incisions were carried down through the skin and subcutaneous tissue. At the proximal margin of the incision, there was found to be a lipoma, a soft tissue tumor/lipoma greater than 3 cm. The lesion was grasped with an Allis clamp, and using the electrocautery, an excisional biopsy of the entire mass was accomplished approximately 4 cm. The mass having been excised was sent for pathology. The skin incision was carried down through the skin and subcutaneous tissue. Hemostasis was controlled with the Aquamantys. Dissection was carried down to the fascia. The fascia was divided. The abductor was divided and there was found to be evidence of the aforementioned comminuted fracture. Under the surgeon's direction, the fluoroscope was positioned. The guidewire was introduced. It took at least 15 minutes for the guidewire to be introduced because of the fracture comminution. The guidewire again having finally been introduced, the outer reamer was accomplished to open up the greater trochanter. This having been accomplished, the 11-mm interlocking intermedullary nail was introduced with the outrigger intact. Under the surgeon's view, AP and lateral image intensification views were accomplished. The position of the nail was found to be acceptable at this point in time with the outrigger affixed. Under the surgeon's direction, the guide tubes were placed on the outer aspect for the introduction of the triflange nail. A #10 blade was used to incise the skin distally to accept the three tubes. Impaction was accomplished and tightening of the device against the lateral cortex of the femur was accomplished. The guidewire was introduced into the femur. It is slightly valgus but is in excellent position on image intensification view laterally, so the wire is buried within the femoral head, although it appears very deep on the AP plane, which is spurious. AP and lateral image intensification views having been accomplished, reaming was accomplished to 105 mm. 105 mm screw was introduced, found to be acceptable. The valgus position on AP is accepted because the issue was to get the patient off the operating table as soon as possible. Verification of position was offered on AP and lateral image intensification views. The wound was thoroughly irrigated. At this point in time, the distal static locking screw and incision was accomplished. Drilling was accomplished through the 2 tubes. Sounding was through a #46 mm screw. A 46-mm distal transfixing locking screw was introduced. The wound was thoroughly irrigated. Autograft and allograft bone grafts were accomplished to the area of comminution in the greater trochanter. 1 mL of DBX was employed at this point in time. Closure of the abductor and the fascia was accomplished using #2 Quill. The wound was thoroughly irrigated. Hemostasis was controlled with the Aquamantys. Bleeding was not excessive. Closures in layers of the subcu using 0 Vicryl, 2-0 Vicryl, and chante for skin. Renny Vega compression dressing was applied. It should be noted that on x-ray, acceptable position was accomplished and verified on the postoperative x-rays. The patient was transferred from the operating table to stretcher having tolerated the procedure well. There was no evidence at all of anaphylaxis or any untoward allergic reaction to the brief encounter with Betadine, which was removed immediately when I discovered it. Filemon Vásquez MD
--- NOTE | 2018-05-23 07:42 | CP.PCM.PN ---
Subjective - Date & Time of Evaluation Date of Evaluation: 05/23/18 Time of Evaluation: 07:41 - Subjective Subjective: PGY-2 Progress Note: Dr. Mimi Garcia Patient seen and examined at bedside. Per nursing, no acute events occurred overnight. Patient denies any chest pain, abdominal pain, fevers, chills, headaches, constipation, diarrhea, palpitations, or any other complaints. Objective - Vital Signs/Intake and Output Vital Signs (last 24 hours): Temp Pulse Resp BP Pulse Ox 99.1 F 71 20 111/70 97 05/22/18 23:21 05/22/18 23:21 05/22/18 23:21 05/22/18 23:21 05/22/18 23:21 Intake and Output: 05/23/18 05/23/18 06:59 18:59 Intake Total 880 Output Total 700 Balance 180 - Medications Medications: Current Medications Acetaminophen (Tylenol 325mg Tab) 650 mg PO Q6 [facility] Last Admin: 05/23/18 05:19 Dose: 650 mg Apixaban (Eliquis) 5 mg PO BID [facility] Aspirin (Ecotrin) 81 mg PO DAILY [facility] Last Admin: 05/22/18 10:42 Dose: 81 mg Docusate Sodium (Colace) 100 mg PO BID [facility] Last Admin: 05/22/18 17:35 Dose: 100 mg Enalapril Maleate (Vasotec) 5 mg PO DAILY [facility] Ferrous Sulfate (Feosol) 325 mg PO BID [facility] Last Admin: 05/22/18 17:35 Dose: 325 mg Folic Acid (Folic Acid) 1 mg PO DAILY [facility] Last Admin: 05/22/18 10:42 Dose: 1 mg Hydromorphone HCl (Dilaudid) 0.5 mg IVP Q4H PRN PRN Reason: Pain, severe (8-10) Last Admin: 05/22/18 23:13 Dose: 0.5 mg Lactulose (Enulose) 20 gm PO BID [facility] Last Admin: 05/22/18 17:35 Dose: 20 gm Oxycodone/Acetaminophen (Percocet 5/325 Mg Tab) 2 tab PO Q4H PRN PRN Reason: Pain, moderate (4-7) Stop: 05/25/18 08:18 Last Admin: 05/22/18 08:45 Dose: 2 tab Oxycodone/Acetaminophen (Percocet 5/325 Mg Tab) 1 tab PO Q4H PRN PRN Reason: Pain, Mild (1-3) Stop: 05/25/18 08:18 Polyethylene Glycol (Miralax) 17 gm PO DAILY [facility] Last Admin: 05/22/18 10:39 Dose: 17 gm Rosuvastatin Calcium (Crestor) 10 mg PO HS [facility] Last Admin: 05/22/18 21:38 Dose: 10 mg Senna/Docusate Sodium (Senokot S 50 Mg-8.6 Mg) 1 tab PO DAILY [facility] Last Admin: 05/22/18 10:42 Dose: 1 tab - Labs Labs: 05/22/18 07:27 05/22/18 07:27 PT 14.2 SECONDS (9.7-12.2) H 05/21/18 07:20 INR 1.3 05/21/18 07:20 APTT 31 SECONDS (21-34) 05/19/18 11:21 - Head Exam Head Exam: ATRAUMATIC, NORMAL INSPECTION, NORMOCEPHALIC - Eye Exam Eye Exam: EOMI, Normal appearance, PERRL. absent: Periorbital tenderness Pupil Exam: NORMAL ACCOMODATION - ENT Exam ENT Exam: Mucous Membranes Moist, Normal Oropharynx - Respiratory Exam Respiratory Exam: Clear to Ausculation Bilateral, NORMAL BREATHING PATTERN. absent: Wheezes, Respiratory Distress - Cardiovascular Exam Cardiovascular Exam: REGULAR RHYTHM, +S1, +S2 - GI/Abdominal Exam GI & Abdominal Exam: Soft, Normal Bowel Sounds. absent: Hyperactive Bowel Sounds - Neurological Exam Neurological Exam: Alert, Awake, CN II-XII Intact, Normal Gait, Oriented x3 - Psychiatric Exam Psychiatric exam: Normal Affect, Normal Mood - Skin Skin Exam: Dry, Intact. absent: Rash Assessment and Plan - Assessment and Plan (Free Text) Assessment: 78 year old male with a past medical history of hypertension and hypercholesterolemia s/p mechanical fall presents with hip fracture. Plan: Left intertrochanteric fracture POD #2 s/p L Hip ORIF with IM nail. Orthopedics Dr. Vásquez consulted. Help appreciated. Cardiology Dr. Coughlin consulted. Help appreciated. Mgmt: Pain Control with Dialuded and Percocet per Ortho Team. Encourage Incentive Spirometer use. PT/OT Constipation Likley Opiod Induced Phosphate Enema 135ml x 2 on 05/19/18 Miralax Daily, Colace 100 BID, Lactulose 20grams PO BID Senokot 1 tab PO DAILY [facility] HTN -Continue Vasotec 5mg PO BID [facility] HLD -Continue Crestor 10mg PO HS [facility] Paroxysmal atrial fibrillation -On Eliqus at home without history of bleed. -Cont. Eliquis 5mg BID Anemia -Ferosol 325mg PO BID [facility] PPX GI ppx not indicated at this time. SCD's Eliquis Dispo: Awaiting [facility] approval for further rehab. All management per Dr. Mimi Garcia. Garcia Davies, PGY-2
[2018-05-23 08:08] LABS: ALB/GLOB RATIO 1.1 (1.0-2.1); ALBUMIN 2.7 g/dL (3.5-5.0); ALT/SGPT 42 U/L (21-72); AST/SGOT 44 U/L (17-59); BLOOD UREA NITROGEN 15 mg/dL (9-20); CALCIUM 7.9 mg/dl (8.6-10.4); GFR NON-AFRICAN AMERICAN > 60
--- NOTE | 2018-05-23 08:21 | CP.PCM.PN ---
Subjective - Date & Time of Evaluation Date of Evaluation: 05/23/18 Time of Evaluation: 07:15 - Subjective Subjective: Patient seen and examined at bedside. Pain is well controlled. Able to transfer to chair yesterday with PT. Able to void last night. No other complaints. Objective - Vital Signs/Intake and Output Vital Signs (last 24 hours): Temp Pulse Resp BP Pulse Ox 99.1 F 71 20 111/70 97 05/22/18 23:21 05/22/18 23:21 05/22/18 23:21 05/22/18 23:21 05/22/18 23:21 Intake and Output: 05/23/18 05/23/18 06:59 18:59 Intake Total 880 Output Total 700 Balance 180 - Medications Medications: Current Medications Acetaminophen (Tylenol 325mg Tab) 650 mg PO Q6 [facility] [place] Last Admin: 05/23/18 05:19 Dose: 650 mg Apixaban (Eliquis) 5 mg PO BID [facility] [place] Aspirin (Ecotrin) 81 mg PO DAILY [facility] [place] Last Admin: 05/22/18 10:42 Dose: 81 mg Docusate Sodium (Colace) 100 mg PO BID [facility] [place] Last Admin: 05/22/18 17:35 Dose: 100 mg Enalapril Maleate (Vasotec) 5 mg PO DAILY [facility] [place] Ferrous Sulfate (Feosol) 325 mg PO BID [facility] [place] Last Admin: 05/22/18 17:35 Dose: 325 mg Folic Acid (Folic Acid) 1 mg PO DAILY [facility] [place] Last Admin: 05/22/18 10:42 Dose: 1 mg Hydromorphone HCl (Dilaudid) 0.5 mg IVP Q4H PRN PRN Reason: Pain, severe (8-10) Last Admin: 05/22/18 23:13 Dose: 0.5 mg Lactulose (Enulose) 20 gm PO BID [facility] [place] Last Admin: 05/22/18 17:35 Dose: 20 gm Oxycodone/Acetaminophen (Percocet 5/325 Mg Tab) 2 tab PO Q4H PRN PRN Reason: Pain, moderate (4-7) Stop: 05/25/18 08:18 Last Admin: 05/22/18 08:45 Dose: 2 tab Oxycodone/Acetaminophen (Percocet 5/325 Mg Tab) 1 tab PO Q4H PRN PRN Reason: Pain, Mild (1-3) Stop: 05/25/18 08:18 Polyethylene Glycol (Miralax) 17 gm PO DAILY [facility] Last Admin: 05/22/18 10:39 Dose: 17 gm Rosuvastatin Calcium (Crestor) 10 mg PO HS [facility] Last Admin: 05/22/18 21:38 Dose: 10 mg Senna/Docusate Sodium (Senokot S 50 Mg-8.6 Mg) 1 tab PO DAILY [facility] Last Admin: 05/22/18 10:42 Dose: 1 tab - Labs Labs: 05/22/18 07:27 05/23/18 07:39 PT 14.2 SECONDS (9.7-12.2) H 05/21/18 07:20 INR 1.3 05/21/18 07:20 APTT 31 SECONDS (21-34) 05/19/18 11:21 - Extremities Exam Additional comments: LLE: Dressings intact with mild dry sanguineous drainage Incisions CDI with chante sensation intact SP/DP/TN motor intact EHL/FHL/TA/G pedal pulses intact calves soft NT b/l Assessment and Plan (1) Closed intertrochanteric fracture of left hip Assessment & Plan: POD#2 s/p L hip ORIF with IM nail -PT/OT TTWB LLE -DVT ppx -orthopedically stable for d/c to [facility] -above d/w Dr. Vásquez in agreement Status: Acute
[2018-05-23] MEDS: HYDROmorphone 0.5 mg/0.5 ml ISec IVP PRN (10:37)
[2018-05-23] MEDS: POLYETHYLENE GLYCOL 3350 17 GM/Dose PACKET PO SCH (10:42)
[2018-05-23] MEDS: Docusate-Senna 50 mg-8.6 mg Tab PO SCH (10:44)
[2018-05-23 12:19] LABS: MEAN CELL VOLUME 91.2 fL (80.0-94.0); MEAN CORPUSCULAR HEMOGLOBIN 32.2 pg (27.0-31.0); MEAN CORPUSCULAR HGB CONC 35.3 g/dL (33.0-37.0); RBC 2.8 Mil/uL (4.40-5.90); RED CELL DISTRIBUTION WIDTH 13.9 % (11.5-14.5); WHITE BLOOD COUNT 7.2 K/uL (4.8-10.8)
--- NOTE | 2018-05-23 20:35 | CP.PCM.PN ---
Subjective - Date & Time of Evaluation Date of Evaluation: 05/23/18 Time of Evaluation: 10:00 - Subjective Subjective: clinically same Objective - Vital Signs/Intake and Output Vital Signs (last 24 hours): Temp Pulse Resp BP Pulse Ox 98.9 F 74 22 108/65 98 05/23/18 15:39 05/23/18 15:39 05/23/18 15:39 05/23/18 15:39 05/23/18 15:39 - Medications Medications: Current Medications Acetaminophen (Tylenol 325mg Tab) 650 mg PO Q6 [facility] Last Admin: 05/23/18 17:29 Dose: 650 mg Apixaban (Eliquis) 5 mg PO BID [facility] Last Admin: 05/23/18 10:44 Dose: 5 mg Aspirin (Ecotrin) 81 mg PO DAILY [facility] Last Admin: 05/23/18 10:44 Dose: 81 mg Docusate Sodium (Colace) 100 mg PO BID [facility] Last Admin: 05/23/18 17:28 Dose: 100 mg Enalapril Maleate (Vasotec) 5 mg PO DAILY [facility] Last Admin: 05/23/18 10:43 Dose: 5 mg Ferrous Sulfate (Feosol) 325 mg PO BID [facility] Last Admin: 05/23/18 17:28 Dose: 325 mg Folic Acid (Folic Acid) 1 mg PO DAILY [facility] Last Admin: 05/23/18 10:44 Dose: 1 mg Hydromorphone HCl (Dilaudid) 0.5 mg IVP Q4H PRN PRN Reason: Pain, severe (8-10) Last Admin: 05/23/18 10:37 Dose: 0.5 mg Lactulose (Enulose) 20 gm PO BID [facility] Last Admin: 05/23/18 17:30 Dose: Not Given Oxycodone/Acetaminophen (Percocet 5/325 Mg Tab) 2 tab PO Q4H PRN PRN Reason: Pain, moderate (4-7) Stop: 05/25/18 08:18 Last Admin: 05/22/18 08:45 Dose: 2 tab Oxycodone/Acetaminophen (Percocet 5/325 Mg Tab) 1 tab PO Q4H PRN PRN Reason: Pain, Mild (1-3) Stop: 05/25/18 08:18 Polyethylene Glycol (Miralax) 17 gm PO DAILY [facility] Last Admin: 05/23/18 10:42 Dose: 17 gm Rosuvastatin Calcium (Crestor) 10 mg PO HS [facility] Last Admin: 05/22/18 21:38 Dose: 10 mg Senna/Docusate Sodium (Senokot S 50 Mg-8.6 Mg) 1 tab PO DAILY [facility] Last Admin: 05/23/18 10:44 Dose: 1 tab - Labs Labs: 05/23/18 12:09 05/23/18 07:39 PT 14.2 SECONDS (9.7-12.2) H 05/21/18 07:20 INR 1.3 05/21/18 07:20 APTT 31 SECONDS (21-34) 05/19/18 11:21 Assessment and Plan (1) Closed intertrochanteric fracture of left hip Status: Acute (2) Hip fracture Status: Acute
[2018-05-24 01:36] VITALS: RESP 20
[2018-05-24 06:51] LABS: ALB/GLOB RATIO 1.2 (1.0-2.1); ALBUMIN 2.8 g/dL (3.5-5.0); ALT/SGPT 57 U/L (21-72); AST/SGOT 66 U/L (17-59); BLOOD UREA NITROGEN 13 mg/dL (9-20); CALCIUM 8.3 mg/dl (8.6-10.4); GFR NON-AFRICAN AMERICAN > 60
--- NOTE | 2018-05-24 08:20 | CP.PCM.CON ---
<Ted Romero - Last Filed: 05/24/18 11:48> History of Present Illness - History of Present Illness History of Present Illness: PGY4 GI fellow consult note Patient is a 78-year-old male with a history of paroxysmal A. fib (on apixaban), hypertension, hyperlipidemia who originally presented on 05/16/18 after mechanical fall subsequently found to have left hip fracture now status post ORIF on 05/21/18. GI consulted for constipation. He states that prior to admission, he would have no issues with constipation reporting daily formed bowel movements without signs of bleeding. Since surg daron, he has been having small BMs and passing gas, but states he has not had a "good" bowel movement. He reports some associated vague lower abdominal discomfort. He continues to work with PT as best he is able to. States he is tolerating diet. Denied weight loss, N/V, melena nor hematochezia. States last CSPY was in 2017, unclear results, told to repeat in 5 years. 12 point review of systems negative other than stated above Medical history: See above Surgical history: Left hip ORIF on 05/21/18 Medications: Reviewed in chart Family history: Denied history of GI problems Social history: Denied tobacco Allergies: Iodine Past Patient History - Infectious Disease Hx of Infectious Diseases: None - Past Medical History & Family History Past Medical History?: Yes - Past Social History Smoking Status: Never Smoked - CARDIAC Hx Cardiac Disorders: Yes Hx Atrial Fibrillation: Yes - PULMONARY Hx Respiratory Disorders: No - NEUROLOGICAL Hx Neurological Disorder: No - HEENT Hx HEENT Problems: No - RENAL Hx Chronic Kidney Disease: Yes Hx Kidney Stones: Yes - ENDOCRINE/METABOLIC Hx Endocrine Disorders: No - HEMATOLOGICAL/ONCOLOGICAL Hx Blood Disorders: No - INTEGUMENTARY Hx Dermatological Problems: No - MUSCULOSKELETAL/RHEUMATOLOGICAL Hx Musculoskeletal Disorders: No Hx Falls: No - GASTROINTESTINAL Hx Gastrointestinal Disorders: No - GENITOURINARY/GYNECOLOGICAL Hx Genitourinary Disorders: No - PSYCHIATRIC Hx Psychophysiologic Disorder: No Hx Substance Use: No - SURGICAL HISTORY Hx Surgeries: Yes Other/Comment: Bilateral inguinal hernia surgery. Surgery for kidney stones. Surgery for enlarged prostate - ANESTHESIA Hx Anesthesia: Yes Hx Anesthesia Reactions: No Meds Allergies/Adverse Reactions: Allergies Allergy/AdvReac Type Severity Reaction Status Date / Time iodine Allergy Mild DIZZINESS Verified 05/16/18 10:27 - Medications Medications: Current Medications Acetaminophen (Tylenol 325mg Tab) 650 mg PO Q6 [facility] Last Admin: 05/24/18 05:22 Dose: 650 mg Apixaban (Eliquis) 5 mg PO BID [facility] Last Admin: 05/23/18 10:44 Dose: 5 mg Aspirin (Ecotrin) 81 mg PO DAILY [facility] Last Admin: 05/23/18 10:44 Dose: 81 mg Docusate Sodium (Colace) 100 mg PO BID [facility] Last Admin: 05/23/18 17:28 Dose: 100 mg Enalapril Maleate (Vasotec) 5 mg PO DAILY [facility] Last Admin: 05/23/18 10:43 Dose: 5 mg Ferrous Sulfate (Feosol) 325 mg PO BID [facility] Last Admin: 05/23/18 17:28 Dose: 325 mg Folic Acid (Folic Acid) 1 mg PO DAILY [facility] Last Admin: 05/23/18 10:44 Dose: 1 mg Hydromorphone HCl (Dilaudid) 0.5 mg IVP Q4H PRN PRN Reason: Pain, severe (8-10) Last Admin: 05/23/18 10:37 Dose: 0.5 mg Lactulose (Enulose) 20 gm PO BID [facility] Last Admin: 05/23/18 17:30 Dose: Not Given Oxycodone/Acetaminophen (Percocet 5/325 Mg Tab) 2 tab PO Q4H PRN PRN Reason: Pain, moderate (4-7) Stop: 05/25/18 08:18 Last Admin: 05/22/18 08:45 Dose: 2 tab Oxycodone/Acetaminophen (Percocet 5/325 Mg Tab) 1 tab PO Q4H PRN PRN Reason: Pain, Mild (1-3) Stop: 05/25/18 08:18 Polyethylene Glycol (Miralax) 17 gm PO DAILY [facility] Last Admin: 05/23/18 10:42 Dose: 17 gm Rosuvastatin Calcium (Crestor) 10 mg PO HS [facility] Last Admin: 05/23/18 21:48 Dose: 10 mg Senna/Docusate Sodium (Senokot S 50 Mg-8.6 Mg) 1 tab PO DAILY [facility] Last Admin: 05/23/18 10:44 Dose: 1 tab Physical Exam - Constitutional Appears: Well, No Acute Distress - Head Exam Head Exam: ATRAUMATIC, NORMAL INSPECTION - Eye Exam Eye Exam: EOMI. absent: Scleral icterus - ENT Exam ENT Exam: Mucous Membranes Moist. absent: Mucous Membranes Dry - Respiratory Exam Respiratory Exam: Clear to Auscultation Bilateral, NORMAL BREATHING PATTERN. absent: Accessory Muscle Use - Cardiovascular Exam Cardiovascular Exam: REGULAR RHYTHM, RRR - GI/Abdominal Exam GI & Abdominal Exam: Distended (mildly), Hypoactive Bowel Sounds, Soft, Tenderness (mildly ttp in lower quads w/o guarding). absent: Bruit, Diminished Bowel Sounds, Firm, Guarding, Hernia, Pulsatile Mass, Rigid - Rectal Exam Rectal Exam: Deferred - Extremities Exam Extremities exam: Positive for: normal inspection. Negative for: pedal edema - Neurological Exam Neurological exam: Alert, CN II-XII Intact - Psychiatric Exam Psychiatric exam: Normal Affect, Normal Mood - Skin Skin Exam: Normal Color, Warm Results - Vital Signs Recent Vital Signs: Last Vital Signs Temp 98.4 F 05/23/18 23:25 Pulse 77 05/23/18 23:25 Resp 20 05/23/18 23:25 BP 114/70 05/23/18 23:25 Pulse Ox 96 05/23/18 23:25 - Labs Result Diagrams: 05/23/18 12:09 05/24/18 06:19 Labs: Laboratory Results - last 24 hr 05/23/18 05/24/18 12:09 06:19 WBC 7.2 RBC 2.80 L Hgb 9.0 L Hct 25.6 L MCV 91.2 MCH 32.2 H MCHC 35.3 RDW 13.9 Plt Count 130 MPV 9.0 Sodium 134 Potassium 4.0 Chloride 101 Carbon Dioxide 28 Anion Gap 9 L BUN 13 Creatinine 0.6 L Est GFR ( Amer) > 60 Est GFR (Non-Af Amer) > 60 Random Glucose 104 Calcium 8.3 L Total Bilirubin 1.1 AST 66 H D ALT 57 Alkaline Phosphatase 59 Total Protein 5.2 L Albumin 2.8 L Globulin 2.4 Albumin/Globulin Ratio 1.2 Assessment & Plan - Assessment and Plan (Free Text) Assessment: 78-year-old male with a past medical history of atrial fibrillation, hypertension, hyperlipidemia presenting with hip fracture. GI consulted for constipation #Constipation: Likely multifactorial related to opioid use, postop/relatively immobile state. #Atrial fibrillation: On apixaban #Hypertension, hyperlipidemia Plan: - Linaclotide 145 mcg PO QD prescription provided to patient - Cont colace and miralax - Cont PT and ambulation - Encourage adequate fluid intake Patient seen and examined with Dr. Paula. Please see attestation for further recommendations/changes. <Finn Paula - Last Filed: 05/24/18 12:13> Meds - Medications Medications: Current Medications Acetaminophen (Tylenol 325mg Tab) 650 mg PO Q6 [facility] Last Admin: 05/24/18 05:22 Dose: 650 mg Apixaban (Eliquis) 5 mg PO BID [facility] Last Admin: 05/24/18 09:01 Dose: 5 mg Aspirin (Ecotrin) 81 mg PO DAILY [facility] Last Admin: 05/24/18 09:04 Dose: 81 mg Docusate Sodium (Colace) 100 mg PO BID [facility] Last Admin: 05/24/18 09:00 Dose: 100 mg Enalapril Maleate (Vasotec) 5 mg PO DAILY [facility] Last Admin: 05/24/18 09:02 Dose: 5 mg Ferrous Sulfate (Feosol) 325 mg PO BID [facility] Last Admin: 05/24/18 09:04 Dose: 325 mg Folic Acid (Folic Acid) 1 mg PO DAILY [facility] Last Admin: 05/24/18 09:02 Dose: 1 mg Hydromorphone HCl (Dilaudid) 0.5 mg IVP Q4H PRN PRN Reason: Pain, severe (8-10) Last Admin: 05/24/18 11:40 Dose: 0.5 mg Lactulose (Enulose) 20 gm PO BID [facility] Last Admin: 05/24/18 09:01 Dose: 20 gm Oxycodone/Acetaminophen (Percocet 5/325 Mg Tab) 2 tab PO Q4H PRN PRN Reason: Pain, moderate (4-7) Stop: 05/25/18 08:18 Last Admin: 05/22/18 08:45 Dose: 2 tab Oxycodone/Acetaminophen (Percocet 5/325 Mg Tab) 1 tab PO Q4H PRN PRN Reason: Pain, Mild (1-3) Stop: 05/25/18 08:18 Polyethylene Glycol (Miralax) 17 gm PO DAILY [facility] Last Admin: 05/24/18 09:00 Dose: 17 gm Rosuvastatin Calcium (Crestor) 10 mg PO HS [facility] Last Admin: 05/23/18 21:48 Dose: 10 mg Senna/Docusate Sodium (Senokot S 50 Mg-8.6 Mg) 1 tab PO DAILY [facility] Last Admin: 05/24/18 09:04 Dose: 1 tab Results - Vital Signs Recent Vital Signs: Last Vital Signs Temp 98 F 05/24/18 07:00 Pulse 70 05/24/18 07:00 Resp 20 05/24/18 07:00 BP 118/71 05/24/18 09:02 Pulse Ox 97 05/24/18 07:00 - Labs Result Diagrams: 05/23/18 12:09 05/24/18 06:19 Labs: Laboratory Results - last 24 hr 05/23/18 05/24/18 12:09 06:19 WBC 7.2 RBC 2.80 L Hgb 9.0 L Hct 25.6 L MCV 91.2 MCH 32.2 H MCHC 35.3 RDW 13.9 Plt Count 130 MPV 9.0 Sodium 134 Potassium 4.0 Chloride 101 Carbon Dioxide 28 Anion Gap 9 L BUN 13 Creatinine 0.6 L Est GFR ( Amer) > 60 Est GFR (Non-Af Amer) > 60 Random Glucose 104 Calcium 8.3 L Total Bilirubin 1.1 AST 66 H D ALT 57 Alkaline Phosphatase 59 Total Protein 5.2 L Albumin 2.8 L Globulin 2.4 Albumin/Globulin Ratio 1.2 Attending/Attestation - Attestation I have personally seen and examined this patient.: Yes I have fully participated in the care of the patient.: Yes I have reviewed all pertinent clinical information: Yes Notes (Text): 05/24/18 12:11 Patient well known to me with severe constipation and abdominal pain POD#3 from [facility] following a fall. Patient has been on Percoset and has been bed and chair ridden and only began ambulation assistance today. Failure of relief with Colace, Lactulose and Miralax with only scant stool yesterday. Rec/ Linzess 145mcg QD until large and regular bowel movement. Given Rx for discharge to rehab. Continue Colace 100mg daily Miralax hs prn Continue with ambulation Will see as out patient again when home.
[2018-05-24] MEDS: POLYETHYLENE GLYCOL 3350 17 GM/Dose PACKET PO SCH (09:00)
[2018-05-24] MEDS: Docusate-Senna 50 mg-8.6 mg Tab PO SCH (09:04)
--- NOTE | 2018-05-24 09:46 | CP.PCM.PN ---
Subjective - Date & Time of Evaluation Date of Evaluation: 05/24/18 Time of Evaluation: 09:30 - Subjective Subjective: s- PT DOING QUITE WELL; minimal discomfort' orthopedically stable Objective - Vital Signs/Intake and Output Vital Signs (last 24 hours): Temp Pulse Resp BP Pulse Ox 98 F 70 20 118/71 97 05/24/18 07:00 05/24/18 07:00 05/24/18 07:00 05/24/18 09:02 05/24/18 07:00 Intake and Output: 05/24/18 05/24/18 06:59 18:59 Intake Total 320 Output Total 840 Balance -520 - Medications Medications: Current Medications Acetaminophen (Tylenol 325mg Tab) 650 mg PO Q6 [facility] [place] Last Admin: 05/24/18 05:22 Dose: 650 mg Apixaban (Eliquis) 5 mg PO BID [facility] [place] Last Admin: 05/24/18 09:01 Dose: 5 mg Aspirin (Ecotrin) 81 mg PO DAILY [facility] [place] Last Admin: 05/24/18 09:04 Dose: 81 mg Docusate Sodium (Colace) 100 mg PO BID [facility] [place] Last Admin: 05/24/18 09:00 Dose: 100 mg Enalapril Maleate (Vasotec) 5 mg PO DAILY [facility] Last Admin: 05/24/18 09:02 Dose: 5 mg Ferrous Sulfate (Feosol) 325 mg PO BID [facility] [place] Last Admin: 05/24/18 09:04 Dose: 325 mg Folic Acid (Folic Acid) 1 mg PO DAILY [facility] Last Admin: 05/24/18 09:02 Dose: 1 mg Hydromorphone HCl (Dilaudid) 0.5 mg IVP Q4H PRN PRN Reason: Pain, severe (8-10) Last Admin: 05/23/18 10:37 Dose: 0.5 mg Lactulose (Enulose) 20 gm PO BID [facility] [place] Last Admin: 05/24/18 09:01 Dose: 20 gm Oxycodone/Acetaminophen (Percocet 5/325 Mg Tab) 2 tab PO Q4H PRN PRN Reason: Pain, moderate (4-7) Stop: 05/25/18 08:18 Last Admin: 05/22/18 08:45 Dose: 2 tab Oxycodone/Acetaminophen (Percocet 5/325 Mg Tab) 1 tab PO Q4H PRN PRN Reason: Pain, Mild (1-3) Stop: 05/25/18 08:18 Polyethylene Glycol (Miralax) 17 gm PO DAILY [facility] [place] Last Admin: 05/24/18 09:00 Dose: 17 gm Rosuvastatin Calcium (Crestor) 10 mg PO HS [facility] [place] Last Admin: 05/23/18 21:48 Dose: 10 mg Senna/Docusate Sodium (Senokot S 50 Mg-8.6 Mg) 1 tab PO DAILY [facility] [place] Last Admin: 05/24/18 09:04 Dose: 1 tab - Labs Labs: 05/23/18 12:09 05/24/18 06:19 PT 14.2 SECONDS (9.7-12.2) H 05/21/18 07:20 INR 1.3 05/21/18 07:20 APTT 31 SECONDS (21-34) 05/19/18 11:21 - Additional Findings Additional findings: Objctive systemic wnl Musculoskekltal stance/gait- dferred L hip wound dressing dry and intact orthopedically stable Assessment and Plan - Assessment and Plan (Free Text) Assessment: A- s/p ORIF L femur fx P- orthopedically stable for transfer today 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
[2018-05-24] MEDS: HYDROmorphone 0.5 mg/0.5 ml ISec IVP PRN (11:40)
--- NOTE | 2018-05-24 14:54 | CP.PCM.PN ---
Subjective - Date & Time of Evaluation Date of Evaluation: 05/24/18 Time of Evaluation: 09:45 - Subjective Subjective: clinically same Objective - Vital Signs/Intake and Output Vital Signs (last 24 hours): Temp Pulse Resp BP Pulse Ox 98 F 70 20 118/71 97 05/24/18 07:00 05/24/18 07:00 05/24/18 07:00 05/24/18 09:02 05/24/18 07:00 Intake and Output: 05/24/18 05/24/18 06:59 18:59 Intake Total 320 Output Total 840 Balance -520 - Medications Medications: Current Medications Acetaminophen (Tylenol 325mg Tab) 650 mg PO Q6 [facility] Last Admin: 05/24/18 12:58 Dose: 650 mg Apixaban (Eliquis) 5 mg PO BID [facility] Last Admin: 05/24/18 09:01 Dose: 5 mg Aspirin (Ecotrin) 81 mg PO DAILY [facility] Last Admin: 05/24/18 09:04 Dose: 81 mg Docusate Sodium (Colace) 100 mg PO BID [facility] Last Admin: 05/24/18 09:00 Dose: 100 mg Enalapril Maleate (Vasotec) 5 mg PO DAILY [facility] Last Admin: 05/24/18 09:02 Dose: 5 mg Ferrous Sulfate (Feosol) 325 mg PO BID [facility] Last Admin: 05/24/18 09:04 Dose: 325 mg Folic Acid (Folic Acid) 1 mg PO DAILY [facility] Last Admin: 05/24/18 09:02 Dose: 1 mg Hydromorphone HCl (Dilaudid) 0.5 mg IVP Q4H PRN PRN Reason: Pain, severe (8-10) Last Admin: 05/24/18 11:40 Dose: 0.5 mg Lactulose (Enulose) 20 gm PO BID [facility] Last Admin: 05/24/18 09:01 Dose: 20 gm Oxycodone/Acetaminophen (Percocet 5/325 Mg Tab) 2 tab PO Q4H PRN PRN Reason: Pain, moderate (4-7) Stop: 05/25/18 08:18 Last Admin: 05/22/18 08:45 Dose: 2 tab Oxycodone/Acetaminophen (Percocet 5/325 Mg Tab) 1 tab PO Q4H PRN PRN Reason: Pain, Mild (1-3) Stop: 05/25/18 08:18 Polyethylene Glycol (Miralax) 17 gm PO DAILY [facility] Last Admin: 05/24/18 09:00 Dose: 17 gm Rosuvastatin Calcium (Crestor) 10 mg PO HS [facility] Last Admin: 05/23/18 21:48 Dose: 10 mg Senna/Docusate Sodium (Senokot S 50 Mg-8.6 Mg) 1 tab PO DAILY [facility] Last Admin: 05/24/18 09:04 Dose: 1 tab - Labs Labs: 05/23/18 12:09 05/24/18 06:19 PT 14.2 SECONDS (9.7-12.2) H 05/21/18 07:20 INR 1.3 05/21/18 07:20 APTT 31 SECONDS (21-34) 05/19/18 11:21 - Constitutional Appears: Well - Head Exam Head Exam: ATRAUMATIC, NORMAL INSPECTION, NORMOCEPHALIC - Eye Exam Eye Exam: EOMI, Normal appearance, PERRL Pupil Exam: NORMAL ACCOMODATION, PERRL - ENT Exam ENT Exam: Mucous Membranes Moist, Normal Exam - Neck Exam Neck Exam: Full ROM, Normal Inspection. absent: Lymphadenopathy - Respiratory Exam Respiratory Exam: Decreased Breath Sounds - Cardiovascular Exam Cardiovascular Exam: REGULAR RHYTHM, +S1, +S2 - GI/Abdominal Exam GI & Abdominal Exam: Soft, Diminished Bowel Sounds - Rectal Exam Rectal Exam: Deferred Assessment and Plan (1) Closed intertrochanteric fracture of left hip Status: Acute (2) Hip fracture Status: Acute
[2018-05-24 16:36] VITALS: BP 111/67; PULSE 68; TEMP 97.8; O2SAT 96
== END 2018-05-24 19:30 | DRG 465 ==
LOC: C.ER 09:46 → C.6T 12:31
PROVIDERS: ADMIT Internal Medicine Nephrology; ATTEND Internal Medicine Nephrology
PROC: 0QU707Z Supplement Left Upper Femur with Autologous Tissue Substitute, Open Approach (ICD-10-PCS; 2018-05-21)
PROC: 0QU70KZ Supplement Left Upper Femur with Nonautologous Tissue Substitute, Open Approach (ICD-10-PCS; 2018-05-21)
PROC: 0JBM0ZZ Excision of Left Upper Leg Subcutaneous Tissue and Fascia, Open Approach (ICD-10-PCS; 2018-05-21)
PROC: 0QS704Z Reposition Left Upper Femur with Internal Fixation Device, Open Approach (ICD-10-PCS; principal; 2018-05-21 12:00)
DX: S72.142A Displaced intertrochanteric fracture of left femur, initial encounter for closed fracture (principal); D17.24 Benign lipomatous neoplasm of skin and subcutaneous tissue of left leg; I48.0 Paroxysmal atrial fibrillation; I12.9 Hypertensive chronic kidney disease with stage 1 through stage 4 chronic kidney disease, or unspecified chronic kidney disease; N18.9 Chronic kidney disease, unspecified; W00.0XXA Fall on same level due to ice and snow, initial encounter; M25.562 Pain in left knee; N40.1 Benign prostatic hyperplasia with lower urinary tract symptoms; R33.8 Other retention of urine; K59.03 Drug induced constipation; T40.2X5A Adverse effect of other opioids, initial encounter; E78.5 Hyperlipidemia, unspecified; E78.00 Pure hypercholesterolemia, unspecified; Y93.H1 Activity, digging, shoveling and raking; Y92.007 Garden or yard of unspecified non-institutional (private) residence as the place of occurrence of the external cause; Z79.01 Long term (current) use of anticoagulants; Z87.442 Personal history of urinary calculi

== ENCOUNTER 2018-06-28 23:22 | Emergency (ER) | payer MEDICARE ==
--- NOTE | 2018-06-28 23:47 | C.PDOC ---
History Of Present Illness 78-year-old male presents to the emergency department with complaints of rectal bleeding since Saturday. Patient was recently released from rehab with a similar issue. Patient has a history of hemorrhoids, stated that earlier today he felt wetness in his pants and saw that there was blood. Time Seen by Provider: 06/28/18 23:47 Chief Complaint (Nursing): GI Problem History Per: Patient History/Exam Limitations: no limitations Onset/Duration Of Symptoms: Days (1) Current Symptoms Are (Timing): Still Present Number Of Bleeding Episodes: One Quality Of Discomfort: denies: "Pain" Associated Symptoms: Rectal Bleeding. denies: Nausea, Vomiting, Diarrhea, Hematemesis Past Medical History Reviewed: Historical Data, Nursing Documentation, Vital Signs Vital Signs: Last Vital Signs Temp 98.7 F 06/28/18 23:34 Pulse 80 06/28/18 23:34 Resp 16 06/28/18 23:34 BP 119/80 06/28/18 23:34 Pulse Ox 98 06/28/18 23:34 - Medical History PMH: Atrial Fibrillation, HTN, Kidney Stones, Chronic Kidney Disease Surgical History: Hernia Repair - [facility] Procedures EXCISION OF L UP LEG SUBCU/FASCIA, OPEN APPROACH (05/16/18) REPOSITION LEFT UPPER FEMUR WITH INT FIX, OPEN APPROACH (05/16/18) SUPPLEMENT LEFT UPPER FEMUR WITH AUTOL SUB, OPEN APPROACH (05/16/18) SUPPLEMENT LEFT UPPER FEMUR WITH NONAUT SUB, OPEN APPROACH (05/16/18) Family History: States: No Known Family Hx - Social History Hx Alcohol Use: No Hx Substance Use: No - Immunization History Hx Tetanus Toxoid Vaccination: No Hx Influenza Vaccination: Yes Hx Pneumococcal Vaccination: Yes Review Of Systems Constitutional: Negative for: Fever, Chills Respiratory: Negative for: Cough, Shortness of Breath Gastrointestinal: Positive for: Other (rectal bleeding). Negative for: Nausea, Vomiting, Abdominal Pain, Diarrhea Physical Exam - Physical Exam Appears: Non-toxic, No Acute Distress Skin: Warm, Dry Head: Normacephalic Eye(s): bilateral: Normal Inspection, PERRL, EOMI Oral Mucosa: Moist Neck: Normal, Supple Chest: Symmetrical, No Tenderness Cardiovascular: Rhythm Regular, No Murmur Respiratory: No Rales, No Rhonchi, No Wheezing Gastrointestinal/Abdominal: Bowel Sounds (good) Rectal: Hemorrhoids (large internal hemorrhoids, small amount of bleeding) Extremity: Normal ROM Neurological/Psych: Oriented x3 ED Course And Treatment - Laboratory Results Result Diagrams: 06/29/18 00:16 06/29/18 00:16 O2 Sat by Pulse Oximetry: 98 (RA) Pulse Ox Interpretation: Normal Progress Note: Plan: Blood Bank. CMP. Chemistry. Protonix. NaCl IV Fluids. Occul Blood Stool. Pt states that he wants to go home. Understands the risks as I've explained at length, including worsening condition, permanent disability and . Pt and family at bedside(hipaa compliant) agrees with taking the pt jorge,e. will return if bleeding recurs Reevaluation Time: 01:40 Reassessment Condition: Improved Medical Decision Making Medical Decision Making: Upon provider reevaluation patient is feeling better, is medically stable, and requires no further treatment in the ED at this time. Patient will be discharged home with Rx for anusol hc . Counseling was provided and all questions were answered regarding diagnosis and need for follow up withdr joyce. There is agreement to discharge plan. Return if symptoms persist or worsen. Disposition Counseled Patient/Family Regarding: Studies Performed, Diagnosis, Need For Followup, Rx Given - Disposition Referrals: Finn Joyce MD [Staff Provider] - Disposition: HOME/ ROUTINE Disposition Time: 23:47 Condition: FAIR Additional Instructions: Please return if symptoms recur Prescriptions: Hydrocortisone 2.5% (Rectal) [Anusol-HC] [address] BID #1 tube Instructions: Hemorrhoids (DC) Forms: [employer] (French) - Clinical Impression Clinical Impression: Hemorrhoids, Rectal bleed - Scribe Statement The provider has reviewed the documentation as recorded by the Scribe (Aurelio Singh) Provider Attestation: All medical record entries made by the Scribe were at my direction and personally dictated by me. I have reviewed the chart and agree that the record accurately reflects my personal performance of the history, physical exam, medical decision making, and the department course for this patient. I have also personally directed, reviewed, and agree with the discharge instructions and disposition.
[2018-06-28] MEDS ORDERED: Sodium Chloride 0.9% 1,000 ML IV ONE (23:58)
[2018-06-28] MEDS ORDERED: Pantoprazole 80 MG in Sodium Chloride 0.9% 100 ML IV STA (23:58)
[2018-06-29 00:24] LABS: BASO % 0.9 % (0.0-2.0); EOS # 0.1 K/uL (0.0-0.7); HEMOGLOBIN 10.7 g/dL (12.0-18.0); LYMPH % 17.8 % (20.0-40.0); MEAN CELL VOLUME 95.8 fL (80.0-94.0); MEAN CORPUSCULAR HEMOGLOBIN 32.4 pg (27.0-31.0); MEAN CORPUSCULAR HGB CONC 33.8 g/dL (33.0-37.0); MEAN PLATELET VOLUME 8.7 fL (7.2-11.7); MONO # 0.5 K/uL (0.0-0.8); MONO % 9.5 % (0.0-10.0); NEUT # 3.8 K/uL (1.8-7.0); NEUT % 69.8 % (50.0-75.0); RBC 3.3 Mil/uL (4.40-5.90); RED CELL DISTRIBUTION WIDTH 16.3 % (11.5-14.5); WHITE BLOOD COUNT 5.4 K/uL (4.8-10.8)
[2018-06-29 00:27] LABS: INR 1.5; PROTHROMBIN TIME 16.6 SECONDS (9.7-12.2)
[2018-06-29 00:34] LABS: ALB/GLOB RATIO 1.6 (1.0-2.1)
[2018-06-29 01:13] LABS: ALBUMIN 3.9 g/dL (3.5-5.0); ALT/SGPT 10 U/L (21-72); AST/SGOT 21 U/L (17-59); BLOOD UREA NITROGEN 15 mg/dL (9-20); CALCIUM 9.2 mg/dl (8.6-10.4); GFR NON-AFRICAN AMERICAN > 60
[2018-06-29 01:55] VITALS: BP 126/71; PULSE 83; RESP 18; TEMP 98.2; O2SAT 100
== END 2018-06-29 01:55 | disposition home or self-care (01) ==
LOC: C.ER 23:22
DX: K64.8 Other hemorrhoids (principal); I12.9 Hypertensive chronic kidney disease with stage 1 through stage 4 chronic kidney disease, or unspecified chronic kidney disease; N18.9 Chronic kidney disease, unspecified; I48.91 Unspecified atrial fibrillation
CPT/HCPCS: 80053; 85025; 85610; 85730; 86850; 86900; 96374; 99284; C9113; G0328; J7030